=== PATIENT | female | born 1950 | race Caucasian/White ===

== ENCOUNTER 2018-05-09 20:54 | Emergency (ER) | payer MEDICARE, OTHER ==
[2018-05-09 21:38] VITALS: BP 140/76; PULSE 104; RESP 20
[2018-05-09] MEDS ORDERED: SODIUM CHLORIDE 0.9% 1,000 ML IV STA ×2 (22:25)
[2018-05-09] MEDS ORDERED: SODIUM CHLORIDE 0.9% 500 ML 500 ML IV STA (22:25)
[2018-05-09] MEDS ORDERED: ACETAMINOPHEN IV (For NPO) 1,000 MG in EMPTY BAG 1 BAG IVPB STA (22:25)
[2018-05-09] MEDS ORDERED: ONDANSETRON 4 MG/2 ML VIAL IVP STA (22:25)
[2018-05-09] MEDS ORDERED: KETOROLAC 30 MG/ML 1 ML VIAL IVP STA (22:25)
--- NOTE | 2018-05-09 22:29 | ED ---
Weakness HPI - General Chief complaint: Nausea/Vomiting/Diarrhea Stated complaint: Weakness, NVD Time Seen by Provider: 05/09/18 22:02 Source: EMS, RN notes reviewed, old records reviewed Mode of arrival: EMS Limitations: no limitations - History of Present Illness Initial comments: This is a 68-year-old female the ER for evaluation is patient resents today for evaluation of fever weakness bodyaches and not feeling well. Patient has positive current fever as well. No recent travel history no sick contacts. Patient has a nausea and vomiting all day. No diarrhea. No significant shortness of breath no chest pain no abdominal pain. No modifying factors for symptoms. Patient has been exposed patient, child with influenza MD Complaint: generalized weakness -: days(s) Location: generalized Severity: moderate Severity scale (1-10): 4 Quality: aching Consistency: constant Improves with: none Worsens with: none Context: recent illness Associated Symptoms: fever/chills, loss of appetite, nausea/vomiting - Related Data Home Medications Medication Instructions Recorded Confirmed Budesonide/Formoterol Fumarate 2 puff INHALATION BID 05/09/18 05/09/18 [Symbicort 160-4.5 Mcg Inhaler] Hydrochlorothiazide 50 mg PO DAILY 05/09/18 05/09/18 Hydroxychloroquine Sulfate 200 mg PO BID 05/09/18 05/09/18 [Plaquenil] Insulin Glargine,Hum.rec.anlog 35 unit SQ HS 05/09/18 05/09/18 [Basaglar Kwikpen U-100] Metoprolol Tartrate [Lopressor] 50 mg PO TID 05/09/18 05/09/18 Multivitamins, Thera [Multivitamin 1 tab PO DAILY 05/09/18 05/09/18 (formulary)] [place]-3 Fatty Acids/Fish Oil [Fish 1 cap PO DAILY 05/09/18 05/09/18 Oil 1,000 mg Softgel] Omeprazole 20 mg PO DAILY 05/09/18 05/09/18 Oxybutynin Chloride [Ditropan] 5 mg PO DAILY 05/09/18 05/09/18 Potassium Chloride [Klor-Con 20] 20 meq PO DAILY 05/09/18 05/09/18 Turmeric Root Extract [Turmeric] 500 mg PO DAILY 05/09/18 05/09/18 amLODIPine [Norvasc] 5 mg PO DAILY 05/09/18 05/09/18 glipiZIDE [Glucotrol] 10 mg PO BID 05/09/18 05/09/18 metFORMIN HCL 1,000 mg PO BID 05/09/18 05/09/18 Allergies Allergy/AdvReac Type Severity Reaction Status Date / Time No Known Allergies Allergy Verified 05/09/18 22:05 Review of Systems ROS Statement: Those systems with pertinent positive or pertinent negative responses have been documented in the HPI. ROS Other: All systems not noted in ROS Statement are negative. Past Medical History Past Medical History: Asthma, Diabetes Mellitus, Hypertension Additional Past Medical History / Comment(s): lupus, thrombocytopenia History of Any Multi-Drug Resistant Organisms: MRSA Date of last positivie culture/infection: 2014 MDRO Source:: blood Past Surgical History: Appendectomy, Hysterectomy, Tonsillectomy Past Psychological History: No Psychological Hx Reported Smoking Status: Never smoker Past Alcohol Use History: None Reported Past Drug Use History: None Reported General Exam Limitations: no limitations General appearance: alert, in no apparent distress Head exam: Present: atraumatic, normocephalic, normal inspection Eye exam: Present: normal appearance, PERRL, EOMI. Absent: scleral icterus, conjunctival injection, periorbital swelling ENT exam: Present: normal exam, mucous membranes dry Neck exam: Present: normal inspection. Absent: tenderness, meningismus, lymp hadenopathy Respiratory exam: Present: normal lung sounds bilaterally. Absent: respiratory distress, wheezes, rales, rhonchi, stridor Cardiovascular Exam: Present: normal rhythm, tachycardia, normal heart sounds. Absent: systolic murmur, diastolic murmur, rubs, gallop, clicks GI/Abdominal exam: Present: soft, normal bowel sounds. Absent: distended, tenderness, guarding, rebound, rigid Extremities exam: Present: normal inspection, full ROM, normal capillary refill. Absent: tenderness, pedal edema, joint swelling, calf tenderness Back exam: Present: normal inspection Neurological exam: Present: alert, oriented X3, CN II-XII intact Psychiatric exam: Present: normal affect, normal mood Skin exam: Present: warm, dry, intact, normal color. Absent: rash Course Vital Signs 05/09/18 21:28 Temperature 100.5 F H Pulse Rate 104 H Respiratory 20 Rate Blood Pressure 140/76 O2 Sat by Pulse 91 L Oximetry EKG Findings - EKG Comments: EKG Findings:: EKG shows sinus tachycardia rate of 102, WI 174, QRS 93,QTC 523 Medical Decision Making - Medical Decision Making 68 female the ER for evaluation of fever not feeling well nausea vomiting. Patient is to be discharged home, feeling better currently with fever control and IV hydration. - Lab Data Result diagrams: 05/09/18 21:41 05/09/18 21:41 Lab Results 05/09/18 05/09/18 05/09/18 Range/Units 21:41 21:41 21:41 WBC 3.8 (3.8-10.6) k/uL RBC 4.11 (3.80-5.40) m/uL Hgb 12.6 (11.4-16.0) gm/dL Hct 36.5 (34.0-46.0) % MCV 88.9 (80.0-100.0) fL MCH 30.8 (25.0-35.0) pg MCHC 34.6 (31.0-37.0) g/dL RDW 13.1 (11.5-15.5) % Plt Count 116 L (150-450) k/uL Neutrophils % 80 % Lymphocytes % 10 % Monocytes % 7 % Eosinophils % 1 % Basophils % 1 % Neutrophils # 3.0 (1.3-7.7) k/uL Lymphocytes # 0.4 L (1.0-4.8) k/uL Monocytes # 0.3 (0-1.0) k/uL Eosinophils # 0.1 (0-0.7) k/uL Basophils # 0.0 (0-0.2) k/uL Sodium 134 L (137-145) mmol/L Potassium 3.2 L (3.5-5.1) mmol/L Chloride 97 L (98-107) mmol/L Carbon Dioxide 26 (22-30) mmol/L Anion Gap 11 mmol/L BUN 12 (7-17) mg/dL Creatinine 0.56 (0.52-1.04) mg/dL Est GFR (CKD-EPI)AfAm >90 (>60 ml/min/1.73 sqM) Est GFR (CKD-EPI)NonAf >90 (>60 ml/min/1.73 sqM) Glucose 182 H (74-99) mg/dL Calcium 8.7 (8.4-10.2) mg/dL Phosphorus 3.9 (2.5-4.5) mg/dL Magnesium 1.2 L (1.6-2.3) mg/dL Total Bilirubin 1.0 (0.2-1.3) mg/dL AST 66 H (14-36) U/L ALT 71 H (9-52) U/L Alkaline Phosphatase 48 (38-126) U/L Total Protein 6.8 (6.3-8.2) g/dL Albumin 4.0 (3.5-5.0) g/dL Lipase 43 (23-300) U/L Influenza Type A RNA Detected H (Not Detectd) Influenza Type B (PCR) Not Detected (Not Detectd) - Radiology Data Radiology results: report reviewed (Chest x-rays negative for acute disease), image reviewed Disposition Clinical Impression: Dehydration, Fever, Influenza A Disposition: HOME SELF-CARE Condition: Good Instructions (If sedation given, give patient instructions): Influenza (ED) Is patient prescribed a controlled substance at d/c from ED?: No Referrals: Zakiya Germain DO [Primary Care Provider] - 1-2 days
[2018-05-09 22:39] LABS: Basophils % (A) 1 %; Eosinophils # (A) 0.1 k/uL (0-0.7); Eosinophils % (A) 1 %; HCT 36.5 % (34.0-46.0); HGB 12.6 gm/dL (11.4-16.0); Lymphocytes # (A) 0.4 k/uL (1.0-4.8); Lymphocytes % (A) 10 %; MCH 30.8 pg (25.0-35.0); MCHC 34.6 g/dL (31.0-37.0); MCV 88.9 fL (80.0-100.0); Mean Platelet Volume 6.4; Monocytes # (A) 0.3 k/uL (0-1.0); Monocytes % (A) 7 %; Neutrophils % (A) 80 %; Platelet Count 116 k/uL (150-450); RBC 4.11 m/uL (3.80-5.40); RDW 13.1 % (11.5-15.5); WBC 3.8 k/uL (3.8-10.6)
[2018-05-09 22:47] LABS: ALT 71 U/L (9-52); AST 66 U/L (14-36); Alkaline Phosphatase 48 U/L (38-126); Anion Gap 11 mmol/L; Blood Urea Nitrogen 12 mg/dL (7-17); Calcium 8.7 mg/dL (8.4-10.2); Carbon Dioxide 26 mmol/L (22-30); Chloride 97 mmol/L (98-107); Glucose 182 mg/dL (74-99); Lipase 43 U/L (23-300); Magnesium 1.2 mg/dL (1.6-2.3); Phosphorus 3.9 mg/dL (2.5-4.5); Potassium 3.2 mmol/L (3.5-5.1); Sodium 134 mmol/L (137-145); Total Protein 6.8 g/dL (6.3-8.2)
[2018-05-09] MEDS ORDERED: MAGNESIUM SULFATE-D5W PMX 1 GM in DEXTROSE/WATER 1 100ML.BAG IVPB SCH (23:45)
[2018-05-09] MEDS ORDERED: POTASSIUM BICARBONATE/CIT AC 20 MEQ TABLET.EFF PO ONE (23:53)
[2018-05-09] MEDS ORDERED: MAGNESIUM OXIDE 400 MG TAB PO STA (23:53)
[2018-05-09] MEDS ORDERED: DEXAMETHASONE SOD PHOSPHATE 10 MG/ML 1 ML VIAL IV STA (23:57)
[2018-05-09] MEDS ORDERED: OSELTAMIVIR 75 MG CAP PO STA (23:57)
[2018-05-10] LABS: Appearance,Urine Cloudy (Clear); Bilirubin,Urine Negative (Negative); Blood,Urine Negative (Negative); Color,Urine Yellow; Glucose,Urine (UA) Trace (Negative); Ketones,Urine 2+ (Negative); Leukocyte Esterase,Urine Negative (Negative); Mucus,Urine Occasional /hpf; Nitrite,Urine Negative (Negative); PH, Urine 5.5 (5.0-8.0); Protein,Urine 1+ (Negative); RBC,Urine <1 /hpf (0-5); Specific Gravity,Urine 1.016 (1.001-1.035); Squamous Epithelial Cell,Urine 1 /hpf (0-4); Urobilinogen,Urine <2.0 mg/dL (<2.0)
[2018-05-10 00:35] VITALS: TEMP 98.9
--- NOTE | 2018-05-10 07:19 | XR ---
EXAMINATION TYPE: XR chest 2V DATE OF EXAM: 05/09/2018 COMPARISON: NONE HISTORY: Shortness of breath and chest pain TECHNIQUE: Frontal and lateral views of the chest are obtained. FINDINGS: Platelike left midlung linear probable atelectasis is seen. Pulmonary vascular prominence is noted throughout. No sizable pleural effusion or pneumothorax. Cardiomediastinal silhouette is wit hin normal limits. IMPRESSION: Left midlung linear airspace disease favored to represent atelectasis and mild pulmonary vascular prominence. Correlate for fluid overload.
== END 2018-05-10 00:34 | disposition home or self-care (01) ==
LOC: EC 20:54
DX: E86.0 Dehydration (principal); J10.1 Influenza due to other identified influenza virus with other respiratory manifestations; R00.0 Tachycardia, unspecified; R53.1 Weakness; R63.0 Anorexia; J45.909 Unspecified asthma, uncomplicated; E11.9 Type 2 diabetes mellitus without complications; I10 Essential (primary) hypertension; Z79.4 Long term (current) use of insulin; Z79.51 Long term (current) use of inhaled steroids; Z79.899 Other long term (current) drug therapy; Z86.14 Personal history of Methicillin resistant Staphylococcus aureus infection; Z90.49 Acquired absence of other specified parts of digestive tract; Z90.89 Acquired absence of other organs
CPT/HCPCS: 36415; 93005; 80053; 83605; 83690; 83735; 84100; 85025; 87502; 71046; 99285; 96365; 96375 ×3; 96361; J2405; J1885; J0131; 81001

== ENCOUNTER → 2019-05-04 | Outpatient (CLI) | payer MEDICARE, OTHER ==
[2019-05-04 20:07] LABS: Hemoglobin A1C 7.3 % (4.0-6.0)
== END | disposition home or self-care (01) ==
LOC: LABWHC1 07:43
PROVIDERS: ATTEND Family Medicine
DX: E11.9 Type 2 diabetes mellitus without complications (principal)
CPT/HCPCS: 36415; 83036

== ENCOUNTER 2020-03-14 06:48 | Day surgery (SDC) | payer MEDICARE, OTHER ==
[2020-03-12 17:45] VITALS: BMI 40.4
[~2020-03-14 06:48] MED LIST: LACTATED RINGERS 1,000 ML IV SCH; LIDOCAINE 1% (10MG/ML) FOR IV START INTRADERMA PRN
[2020-03-14 07:30] VITALS: TEMP 97.3
[2020-03-14 07:33] LABS: Glucose,Whole Blood 132 mg/dL (75-99)
[2020-03-14] MEDS ORDERED: PROPOFOL 10 MG/ML 20 ML VIAL IV ONE (07:33)
[2020-03-14] MEDS ORDERED: LIDOCAINE 1% INJ 10MG/ML (20 ML MDV) ONE (07:33)
--- NOTE | 2020-03-14 08:11 | P.PCN ---
Date of Procedure: 03/14/20 Description of Procedure: BRIEF HISTORY: Patient is a 70-year-old female presenting for outpatient colonoscopy family history of colon cancer. Please last colonoscopy was 3 years ago with polypectomy at that time. She denies any change in bowel or blood per rectum. She reports a family history of colon cancer in her father, and nephew. PROCEDURE PERFORMED: Colonoscopy. PREOPERATIVE DIAGNOSIS: Family history of colon cancer, patient reports last colonoscopy 3 years ago with polypectomy. ESTIMATED BLOOD LOSS: Minimal. IV sedation per Anesthesia. PROCEDURE: After informed consent was obtained, the patient, was brought into the endoscopy unit. IV sedation was administered by Anesthesia under continuous monitoring. Digital rectal examination was normal. Initially the Olympus CF-190 flexible video colonoscope was then inserted in the rectum, gradually advanced into the cecum without any difficulty. Careful examination was performed as the scope was gradually being withdrawn. Ileocecal valve and the appendiceal orifice were visualized and appeared normal. Prep was excellent. Mucosa of the cecum, ascending colon, transverse colon, descending colon, sigmoid colon, and rectum appeared normal, with multiple small and large mouth diverticula noted throughout the colon. Retroflexion was performed in the rectum and no lesions were seen, with moderate-sized internal hemorrhoids noted. The patient tolerated the procedure well. IMPRESSION: Moderate diverticulosis. Internal hemorrhoids. RECOMMENDATIONS: Findings of this examination were discussed with the patient. Okay to resume diet. Okay to resume medications. Recommend fiber supplementation and fransico cending diverticulosis. Recommend repeat colonoscopy in 5 years for family history of colon cancer or sooner if any signs or symptoms warrant further evaluation develop.
[2020-03-14 08:18] VITALS: RESP 16
[2020-03-14 08:32] VITALS: BP 152/78; PULSE 68
[2020-03-14 08:37] LABS: Glucose,Whole Blood 129 mg/dL (75-99)
== END 2020-03-14 10:31 | disposition home or self-care (01) ==
LOC: ORWHC2ENDO 06:48
PROVIDERS: ATTEND Internal Medicine
DX: Z09 Encounter for follow-up examination after completed treatment for conditions other than malignant neoplasm (principal); K57.30 Diverticulosis of large intestine without perforation or abscess without bleeding; K64.8 Other hemorrhoids; Z86.010 Personal history of colon polyps; Z80.0 Family history of malignant neoplasm of digestive organs; I10 Essential (primary) hypertension; J45.909 Unspecified asthma, uncomplicated; E78.5 Hyperlipidemia, unspecified; G47.33 Obstructive sleep apnea (adult) (pediatric); E11.9 Type 2 diabetes mellitus without complications; M32.9 Systemic lupus erythematosus, unspecified; D69.6 Thrombocytopenia, unspecified; K21.9 Gastro-esophageal reflux disease without esophagitis; Z79.51 Long term (current) use of inhaled steroids; Z79.84 Long term (current) use of oral hypoglycemic drugs; Z79.899 Other long term (current) drug therapy; Z87.891 Personal history of nicotine dependence; Z90.710 Acquired absence of both cervix and uterus; Z90.89 Acquired absence of other organs; Z98.890 Other specified postprocedural states
CPT/HCPCS: 45378; J2001; J2704

== ENCOUNTER → 2020-08-26 | Outpatient (CLI) | payer MEDICARE, OTHER | END | disposition home or self-care (01) | LOC: LABPAT 11:13 | PROVIDERS: ATTEND Orthopaedic Surgery | DX: Z01.812 Encounter for preprocedural laboratory examination (principal) | CPT/HCPCS: 87070 ==

== ENCOUNTER 2020-09-02 10:36 | Day surgery (SDC) | payer MEDICARE, OTHER ==
[2020-08-29 12:01] VITALS: BMI 42.3
--- NOTE | 2020-09-01 10:40 | HP ---
HISTORY AND PHYSICAL DATE OF SURGERY: 09/02/2020 HISTORY OF PRESENT ILLNESS: Joyce Winters is a 70-year-old patient seen with symptomatic left knee osteoarthritis. We discussed options for treatment. She elected to proceed with left total knee arthroplasty. Consent regarding the procedure was obtained. Medical clearance was provided by Dr. Irvin Carlisle. PAST MEDICAL HISTORY: Hypertension, hyperlipidemia, jss-yuedntf-zavtrmldl diabetes. PAST SURGICAL HISTORY: Appendectomy, tonsillectomy, hysterectomy. DAILY MEDICATIONS: Amlodipine, atorvastatin, Januvia, lisinopril, metformin, metoprolol, omeprazole. ALLERGIES: None. SOCIAL HISTORY: She denies tobacco use. PHYSICAL EVALUATION OF THE LEFT KNEE: Range of motion is -3 to 4/115. Mild effusion. Tenderness medial joint line. Crepitus medial patellofemoral compartment on range of motion. Pain with patellofemoral compression. Ligaments stable. Hip rotation without pain. Distal neurovascular exam is intact. RADIOGRAPHS: Left knee radiographs reveal severe osteoarthritic changes. IMPRESSION: 1. Left knee osteoarthritis. 2. Hypertension. 3. Hyperlipidemia. 4. Esr-dbwglvg-bsiemhpjn diabetes. PLAN: Left total knee arthroplasty. MMODL / IJN: [id number] /
[~2020-09-02 10:36] MED LIST changes: +ACETAMINOPHEN TAB 500 MG TAB PO PRN; +DEXAMETHASONE SOD PHOSPHATE 4 MG/ML 1 ML VIAL IV ONE; +HYDROmorphone 0.5 MG/0.5 ML SYRINGE IVP PRN; -LACTATED RINGERS 1,000 ML IV SCH; -LIDOCAINE 1% (10MG/ML) FOR IV START INTRADERMA PRN; +MELOXICAM 7.5 MG TAB PO PRN; +ONDANSETRON 4 MG/2 ML VIAL IVP ONE; +ROPIVACAINE/EPI/CLONIDINE/KET 50 ML SYRINGE MISCELLANE PRN; +TRANEXAMIC ACID 1,000 MG in SODIUM CHLORIDE 0.9% 100 ML IVPB PRN
[2020-09-02] MEDS ORDERED: ONDANSETRON 4 MG/2 ML VIAL ONE (11:38)
[2020-09-02 11:39] LABS: Glucose,Whole Blood 178 mg/dL (75-99)
[2020-09-02] MEDS: LACTATED RINGERS 1,000 ML IV SCH ×3 (11:43→16:43)
[2020-09-02] MEDS ORDERED: fentaNYL (PF) 50 MCG/ML 2 ML AMP IVP ONE (11:52)
[2020-09-02] MEDS ORDERED: MIDAZOLAM 2 MG/2 ML VIAL IVP ONE (11:52)
[2020-09-02] MEDS ORDERED: HYDROmorphone (PF) 1 MG/ML ONE (12:50)
[2020-09-02] MEDS ORDERED: TRANEXAMIC ACID 1,000 MG/10 ML VIAL ONE (12:50)
[2020-09-02] MEDS ORDERED: MIDAZOLAM 2 MG/2 ML VIAL ONE (12:50)
[2020-09-02] MEDS ORDERED: fentaNYL (PF) 50 MCG/ML 2 ML AMP ONE (12:50)
[2020-09-02] MEDS ORDERED: PROPOFOL 10 MG/ML 20 ML VIAL IV ONE (12:50)
[2020-09-02] MEDS ORDERED: SODIUM CHLORIDE 0.9% 100 ML BAG ONE (12:50)
[2020-09-02] MEDS ORDERED: ROPIVACAINE 5 MG/ML 30 ML VIAL ONE (12:50)
[2020-09-02] MEDS ORDERED: HYDROmorphone 0.5 MG/0.5 ML SYRINGE IVP PRN ×2 (14:36)
[2020-09-02] MEDS ORDERED: HYDROcodone/APAP 7.5-325MG 1 EACH TAB PO PRN (14:36)
[2020-09-02] MEDS ORDERED: HYDROcodone/APAP 5-325MG 1 EACH TAB PO PRN (14:36)
[2020-09-02] MEDS ORDERED: ONDANSETRON 4 MG/2 ML VIAL IVP PRN (14:36)
[2020-09-02] MEDS ORDERED: HYDROmorphone 0.2 MG/1 ML SYRINGE IVP PRN (14:36)
[2020-09-02] MEDS ORDERED: traMADol 50 MG TAB PO PRN (14:36)
[2020-09-02] MEDS ORDERED: NALOXONE 0.4 MG/ML 1 ML VIAL IV PRN (14:36)
--- NOTE | 2020-09-02 14:36 | P.OP ---
Date of Procedure: 09/02/20 Preoperative Diagnosis: Left knee osteoarthritis Postoperative Diagnosis: Left knee osteoarthritis Procedure(s) Performed: Left total knee arthroplasty Implants: 1. Depuy attune knee size 6 left cruciate retaining cemented femur 2. Depuy attune size 6 fixed bearing cemented tibial baseplate 3. Depuy attune size 6 fixed bearing cruciate retaining 5 mm polyethylene tibial insert 4. Depuy attune 35 mm all polyethylene cemented patella Anesthesia: regional (Adductor canal catheter, I pack block), spinal Surgeon: Avi Degroot Gathering Machine Setter #1: Nilesh Montalvo Estimated Blood Loss (ml): 50 Pathology: other (Bone) Condition: stable Disposition: PACU Indications for Procedure: 70-year-old patient seen with symptomatic left knee osteoarthritis. After having treatment options discussed, she elected to proceed with total knee arthroplasty. Operative Findings: See description of procedure Description of Procedure: Patient was taken to the operative suite after having an adductor canal catheter placed by the department of anesthesia. Patient underwent a spinal anesthetic by the department of anesthesia. Patient was given preoperative IV intake antibiotics and TXA. A well-padded tourniquet was placed about the left lower extremity. The lower extremity was then prepped and draped in the normal sterile orthopedic fashion. The extremity was elevated, a tourniquet was insufflated to 300. A standard anterior incision was made sharply through skin. Dissection was taken down through the subcutaneous soft tissues down to the extensor mechanism. A medial arthrotomy was performed, patella was everted and knee was flexed. There was advanced osteoarthritis noted. I introduced my distal intramedullary femoral drill. I then introduced the distal femoral cu tting jig. Clifton ELIAS secured the cutting jig with 2 pins. I held retractors in position while Clifton ELIAS performed the distal femoral resection through the guide area we now removed her distal femoral cutting guide. We now placed our 4-in-1 femoral cutting block and positioned and it was secured with 2 pins by Clifton ELIAS while I held the block in position. The distal femoral finishing was now completed. A proximal tibial cutting guide was positioned. I held the guide in the appropriate position with both hands well Clifton ELIAS inserted stabilizing pins into the guide. Proximal tibial cut was made. We now placed a trial femoral component into position, along with an appropriate size tibial tray and insert. We now took the knee through range of motion and had full extension good flexion and good overall soft tissue balance noted. The patella was everted and stabilized with 2 towel clips held by Clifton ELIAS while I performed a flush with patellar quad tendon utilizing a fresh sawblade. We templated the patella, appropriate drill holes were made. An appropriate trial patella was positioned, knee was taken through full range of motion with the patella tracking very nicely. The trial patella was removed. Drill holes were made through the femoral component. All trial components were removed after marking off the appropriate rotation of the tibia. Retractors were now positioned along the proximal tibia. An appropriate keel punch was made with the appropriate size tibial guide by myself on Clifton ELIAS assisted by holding retractors. At this point appropriate size implants were chosen and opened. The joint was irrigated copiously with pulse lavage mechanical irrigation. The posterior capsule was infiltrated with local analgesic. The wound was irrigated with pulse lavage mechanical irrigation. We mixed antibiotic methylmethacrylate. We placed the knee into flexion. We placed multiple retractors assisted by Clifton ELIAS to expose the proximal tibia. Once the methyl methacrylate was ready, the tibial component was cemented into place removing any excess methylmethacrylate form by both myself and Clifton ELIAS. The femoral component was cemented into place removing the removing any excess methylmethacrylate performed by both myself and Clifton ELIAS. We then inserted the appropriate size polyethylene tibial insert. We made sure that it was locked into position. We took the knee into full extension, and then back in a flexion making sure we had removed any excess methylmethacrylate. The patellar component was then cemented down and secured with clamp. Excess methylmethacrylate removed. We kept the knee in full extension, patellar clamp in position until methylmethacrylate had hardened. Once it had hardened the patellar clamp was removed. The knee was taken through full range of motion. The patella tracked nicely. There was good soft tissue balancing. The tourniquet was now released. Additional hemostasis was achieved via electrocautery. A second gram of TXA was given. The wound again was irrigated with pulse lavage mechanical irrigation. The superficial soft tissues were infiltrated local analgesic. The extensor mechanism was repaired with Ethibond. We checked the repair with range of motion and it was stable. The subcutaneous soft tissues were repaired with Vicryl in layers. The skin was approximated with pernio/Dermabond. Sterile dressings were applied followed by loose web roll and Misael bandage. The patient was transferred to a bed, and taken to recovery in stable and satisfactory condition. Clifton ELIAS assisted with this complex procedure.
--- NOTE | 2020-09-02 14:49 | P.ANPRN ---
Procedure Note - Anesthesia - Nerve Block Performed Left Adductor Canal Infusion Time Out Performed: Yes (1150) Date of Procedure: 09/02/20 Procedure Start Time: 11:52 Procedure Stop Time: 11:57 Location of Patient: PreOp Indication: Acute Post-Operative Pain, Requested by Surgeon Specifically requested for management of pain by DrPan: Avi Degroot Sedation Type: Sedate with meaningful contact maintained Preparation: Sterile Prep Position: Supine Catheter Depth at Skin (cm): 8 Catheter: Indwelling Needle Types: Pajunk Needle Gauge: 21 Ultrasound used to visualize needle placement: Yes Ultrasound used to observe medication spread: Yes Injectate: 0.5% Ropivacaine (see comment for volume) (15cc) Blood Aspirated: No Pain Paresthesia on Injection Noted: No Resistance on Injection: Normal Image Stored and Saved: Yes Events: Uneventful and Well Tolerated Left iPack Single Time Out Performed: Yes (115) Date of Procedure: 09/02/20 Procedure Start Time: 11:58 Procedure Stop Time: 12:01 Location of Patient: PreOp Indication: Acute Post-Operative Pain, Requested by Surgeon Specifically requested for management of pain by DrPan: Avi Degroot Sedation Type: Sedate with meaningful contact maintained Preparation: Sterile Prep Position: Supine Catheter: None Needle Types: Pajunk Needle Gauge: 21 Ultrasound used to visualize needle placement: Yes Ultrasound used to observe medication spread: Yes Injectate: 0.5% Ropivacaine (see comment for volume) (15cc) Blood Aspirated: No Pain Paresthesia on Injection Noted: No Resistance on Injection: Normal Image Stored and Saved: Yes Events: Uneventful and Well Tolerated
[2020-09-02] MEDS ORDERED: ROPIVACAINE 0.2%-NS ON-Q PUMP 2 MG/ML EACH MISCELLANE ONE (15:15)
--- NOTE | 2020-09-02 15:16 | XR ---
EXAMINATION TYPE: XR knee limited LT DATE OF EXAM: 09/02/2020 CLINICAL HISTORY: Postop. Left knee arthroplasty. TECHNIQUE: Portable AP and crosstable lateral views of the left knee are obtained immediately postop eratively. COMPARISON: None FINDINGS: Metallic hardware from total left knee arthroplasty is seen and appears satisfactory in al ignment and position. There is evidence of recent surgery with diffuse soft tissue gas. There is no acute osseous abnormality. There is no unexpected radiopaque foreign body. IMPRESSION: METALLIC HARDWARE FROM TOTAL LEFT KNEE ARTHROPLASTY IS SATISFACTORY IN ALIGNMENT.
[2020-09-02 16:39] LABS: Glucose,Whole Blood 250 mg/dL (75-99)
[2020-09-02 20:36] LABS: Glucose,Whole Blood 393 mg/dL (75-99)
[2020-09-02] MEDS ORDERED: glipiZIDE 10 MG TAB PO SCH (21:00)
[2020-09-02] MEDS ORDERED: SENNOSIDES-DOCUSATE SODIUM 1 EACH TAB PO SCH (21:00)
[2020-09-02] MEDS: INSULIN ASPART (NovoLOG) 100 UNIT/ML VIAL SQ SCH (21:06)
[2020-09-02] MEDS: metFORMIN 500 MG TAB PO SCH (21:23)
[2020-09-02] MEDS ORDERED: OXYBUTYNIN CHLORIDE 5 MG TAB PO SCH (21:30)
[2020-09-02] MEDS ORDERED: ATORVASTATIN 20 MG TAB PO SCH (21:30)
[2020-09-02] MEDS: METOPROLOL TARTRATE 50 MG TAB PO SCH (21:44)
[2020-09-02] MEDS: SYMBICORT 160-4.5 MCG INHALER INHALATION SCH (22:34)
[2020-09-03] MEDS: LACTATED RINGERS 1,000 ML IV SCH (00:10)
--- NOTE | 2020-09-03 03:52 | P.CONS ---
History of Present Illness - Reason for Consult Consult date: 09/03/20 - History of Present Illness The patient is a 70-year-old female with a PMH of type II DM, hypertension, hyperlipidemia, and knee osteoarthritis who was admitted to the hospital for an elective left total knee replacement. Patient underwent the procedure earlier today uneventfully and was seen postoperatively on the surgical unit. She reported excellent control of her pain, currently at a 1 out of 10. She reports having gotten out of the bed multiple times and has used the restroom to urinate. She also reports passing flatus but has not had a bowel movement as of yet. She reports compliance with her medication at home. She denied chest discomfort, shortness of breath, fever, chills, cough. Denied abdominal pain, nausea, vomiting. Denied headaches, weakness, numbness, tingling. Review of systems: Pertinent positives and negatives as discussed in HPI, a complete review of systems was performed and all other systems are negative. Physical examination: General: non toxic, no distress, appears at stated age, normal weight Derm: no unusual rashes/lesions no unusual ecchymoses, warm, dry Head: atraumatic, normocephalic, symmetric Eyes: EOMI, no lid lag, anicteric sclera, pupils equal round reactive to light ENT: Nose and ears atraumatic, no thrush, no pharyngeal erythema Neck: No thyromegaly, no cervical lymphadenopathy, trachea midline, supple Mouth: no lip lesion, mucus membranes moist Cardiovascular: S1S2 reg, no murmur, positive posterior tibial pulse bilateral, no edema, capillary refill less than 2 seconds Lungs: CTA bilateral, no rhonchi, no rales , no accessory muscle use Abdominal: soft, nontender to palpation, no guarding, no appreciable organomegaly, normal bowel sounds Ext: no gross muscle atrophy, muscle strength 5 out of 5 in all extremities grossly except left lower extremity due to pain, no contractures, left knee Misael bandage in place Neuro: CN II-XI grossly intact, light touch intact all 4 extremities, finger to nose within normal limits, Psych: Alert, oriented, appropriate affect Assessment/plan Status post left total knee replacement -Defer management including pain control and DVT prophylaxis to the surgery service Chronic conditions: Type II DM, hypertension, hyperkalemia -Continue with home medications -Lispro insulin sliding scale with blood glucose monitoring Past Medical History Past Medical History: Asthma, Blood Disorder, Diabetes Mellitus, GERD/Reflux, Hyperlipidemia, Hypertension, Osteoarthritis (OA), Sleep Apnea/CPAP/BIPAP Additional Past Medical History / Comment(s): Lupus, Thrombocytopenia, no CPAP use, hx of ulcer in 2014. History of Any Multi-Drug Resistant Organisms: MRSA Year Discovered:: 2014 MDRO Source:: blood Past Surgical History: Appendectomy, Hysterectomy, Tonsillectomy Additional Past Surgical History / Comment(s): Varicose vein ablation bilaterally, fatty "lump" excised from right shoulder blade, bilateral cataracts removed with lens implants. Past Anesthesia/Blood Transfusion Reactions: No Reported Reaction Past Psychological History: No Psychological Hx Reported Smoking Status: Former smoker Past Alcohol Use History: Occasional Additional Past Alcohol Use History / Comment(s): Smoked for 20 years, 1/2 ppd, quit in 1990. Past Drug Use History: None Reported Additional Drug Use History / Comment(s): Has used CBD/hemp oil but not currently using. - Past Family History Father Brother(s) Family Medical History: Cancer Additional Family Medical History / Comment(s): Colon cancer. Sister(s) Family Medical History: Cancer Additional Family Medical History / Comment(s): Lung cancer. Medications and Allergies Home Medications Medication Instructions Recorded Confirmed Type Budesonide/Formoterol Fumarate 2 puff INHALATION BID 05/09/18 08/29/20 History [Symbicort 160-4.5 Mcg Inhaler] Metoprolol Tartrate [Lopressor] 100 mg PO BID 05/09/18 08/29/20 History Multivitamins, Thera [Multivitamin 1 tab PO DAILY 05/09/18 08/29/20 History (formulary)] Omeprazole 20 mg PO QAM 05/09/18 08/29/20 History Oxybutynin Chloride [Ditropan] 5 mg PO HS 05/09/18 08/29/20 History amLODIPine [Norvasc] 5 mg PO QAM 05/09/18 08/29/20 History glipiZIDE [Glucotrol] 20 mg PO HS 05/09/18 08/29/20 History metFORMIN HCL 1,000 mg PO BID 05/09/18 08/29/20 History Atorvastatin [Lipitor] 20 mg PO HS 03/12/20 08/29/20 History Cinnamon Bark [Cinnamon] 1,000 mg PO BID 03/12/20 08/29/20 History Lisinopril-Hctz 20-12.5 mg 1 tab PO QAM 03/12/20 08/29/20 History [Zestoretic 20-12.5] [place]-3 Fatty Acids/Fish Oil [Fish 1 each PO DAILY 03/12/20 08/29/20 History Oil 1,000 mg Softgel] sitaGLIPtin PHOSPHATE [Januvia] 100 mg PO DAILY 03/12/20 08/29/20 History Pioglitazone [Actos] 15 mg PO QAM 08/29/20 08/29/20 History Allergies Allergy/AdvReac Type Severity Reaction Status Date / Time No Known Allergies Allergy Verified 08/29/20 11:33 Physical Exam Vitals: Vital Signs Temp Pulse Resp BP Pulse Ox 09/02/20 20:00 98.2 F 88 17 175/72 96 09/02/20 17:45 91 170/77 92 L 09/02/20 17:30 85 167/85 94 L 09/02/20 17:15 87 92 L 09/02/20 17:00 62 169/76 93 L 09/02/20 16:45 62 162/70 93 L 09/02/20 16:30 66 161/68 93 L 09/02/20 16:15 68 163/81 09/02/20 16:00 98.1 F 75 17 175/85 96 09/02/20 15:45 67 16 156/72 100 09/02/20 15:15 58 L 16 153/71 100 09/02/20 15:00 63 16 144/75 100 09/02/20 14:55 97.9 F 68 16 157/67 96 09/02/20 12:08 68 16 157/74 97 09/02/20 11:16 96.2 F L 76 16 145/76 100 Intake and Output 09/02/20 09/02/20 09/03/20 14:59 22:59 06:59 Intake Total 850 Output Total 50 Balance 800 Intake: IV 850 Output: Estimated Blood Loss 50 Other: # Voids 1 Weight 109.2 kg 109.2 kg Results Labs: Abnormal Lab Results - Last 24 Hours (Table) 09/02/20 09/02/20 09/02/20 Range/Units 11:28 16:37 20:35 POC Glucose (mg/dL) 178 H 250 H 393 H (75-99) mg/dL
[2020-09-03 06:56] LABS: Glucose,Whole Blood 188 mg/dL (75-99)
--- NOTE | 2020-09-03 07:05 | P.PN ---
Progress Note - Text Progress Note Date: 09/03/20 Postoperative day # 1 status post total knee arthroplasty, and adductor canal catheter placed for postoperative analgesia, currently at ropivacaine 0.2% 8 mL per hour and continuous infusion, visual analogue scale is 3/10, patient using oral pain medication for breakthrough pain. Assessment and plan= Acute postoperative pain, adductor canal catheter for pain control, pain is well controlled we'll continue the same management.
[2020-09-03] MEDS ORDERED: INSULIN ASPART (NovoLOG) 100 UNIT/ML VIAL SQ SCH (07:30)
[2020-09-03] MEDS ORDERED: PANTOPRAZOLE 40 MG TABLET PO SCH (07:30)
[2020-09-03] MEDS: INSULIN ASPART (NovoLOG) 100 UNIT/ML VIAL SQ SCH (07:37)
[2020-09-03] MEDS: SYMBICORT 160-4.5 MCG INHALER INHALATION SCH (08:24)
[2020-09-03] MEDS ORDERED: ENOXAPARIN 30 MG/0.3 ML SYRINGE SQ SCH (09:00)
[2020-09-03] MEDS ORDERED: MELOXICAM 7.5 MG TAB PO SCH (09:00)
[2020-09-03] MEDS ORDERED: LINAGLIPTIN 5 MG TABLET PO SCH (09:00)
[2020-09-03] MEDS ORDERED: LISINOPRIL-HCTZ 20-12.5 MG 1 EACH TAB PO SCH (09:00)
[2020-09-03] MEDS ORDERED: MULTIVITAMINS, THERA 1 EACH TAB PO SCH (09:00)
[2020-09-03] MEDS ORDERED: PIOGLITAZONE 15 MG TAB PO SCH (09:00)
[2020-09-03 09:08] LABS: Basophils # (A) 0.02 X 10*3/uL (0.00-0.10); Basophils % (A) 0.2 %; Eosinophils # (A) 0.01 X 10*3/uL (0.04-0.35); Eosinophils % (A) 0.1 %; HCT 31.5 % (37.2-46.3); Lymphocytes % (A) 18.2 %; MCH 30.9 pg (27.0-32.0); MCHC 34.9 g/dL (32.0-37.0); MCV 88.5 fL (80.0-97.0); Mean Platelet Volume 9.8 fL (9.5-12.2); Monocytes # (A) 0.67 X 10*3/uL (0.20-1.00); Monocytes % (A) 7.6 %; Neutrophils # (A) 6.44 X 10*3/uL (1.80-7.70); Neutrophils % (A) 73.4 %; Platelet Count 158 X 10*3/uL (140-440); RBC 3.56 X 10*6/uL (4.10-5.20); RDW 12.3 % (11.5-14.5); WBC 8.78 X 10*3/uL (4.50-10.00)
--- NOTE | 2020-09-03 10:11 | P.DS ---
Providers Date of admission: 09/01/2020 Expected date of discharge: 09/02/20 Attending physician: Avi Degroot Consults: 09/02/20 14:36 Consult Physician Routine Consulting Provider: Salazar Downs Consult Reason/Comments: Medical management Do you want consulting provider notified?: Yes 09/03/20 01:02 Consult Physician Routine Consulting Provider: Genesis Gould Consult Reason/Comments: Medical Management Do you want consulting provider notified?: Already Contacted Primary care physician: Irvin Carlisle Hospital Course: Date of admission: 09/01/2020 Date of discharge: 09/02/2020 Admission diagnosis: Left knee osteoarthritis Discharge diagnosis: Same Attending physician: Dr. Degroot Surgical procedures: Left total knee arthroplasty Brief history: Patient is a 70-year-old female with a history of progressive primary left knee osteoarthritis. At this point patient has failed conservative treatment measures and has opted to proceed with a elective left total knee arthroplasty. Hospital course: Details of patient's surgery can be found in operative report. Patient tolerated the procedure well and was subsequently transported to orthopedic floor. Patient's orthopedic and medical care was provided daily. Patient had daily laboratory tests performed for evaluation of overall blood counts. Patient had daily physical therapy to include strengthening range of motion as well as education with walker ambulation. Patient was treated with Lovenox for their postoperative DVT prophylaxis during their inpatient stay. Patient was noted to have a relatively uneventful postoperative course. Patient reported satisfactory pain control with oral pain medications by postoperative day 1. Patient showed satisfactory progress with physical therapy. Patient moved steadily through the program and had no difficulty meeting the goals by postoperative day 1. Given patient's otherwise satisfactory course and having met physical therapy goals, plan is to discharge patient home on postoperative day 1. Discharge condition/disposition: Patient will be discharged home in stable condition. Discharge medications: Instructions are given on resumption of patient's normal daily medications per primary care recommendation, in addition patient will be prescribed [place] 5 mg/325 mg; Colace; aspirin 81 mg twice a day 30 days. Discharge instructions: 1. Wound care and infection precautions, keep incision dry and covered while showering, no lotions, creams, moisturizers. No soaking, tubs, pools, hottubs. Do not scrub over the incision. 2. Weight-bear [as tolerated] with walker / cane until follow-up. 3. Ice and elevate when necessary. Do not exceed 20 minutes per hour with ice pack. 4. Utilize compression sleeve until seen at first follow up appointment. 5. Visiting nursing care. 6. Home physical therapy including home CPM. 7. Pain meds and anticoagulants per prescription. 8. Pain medication has potential to cause constipation. Increase oral fluid and fiber intake. Contact primary care provider if you have not had a bowel movement within 48 hours after discharge 9. No anti-inflammatory medication until discussed at first post operative visit, this including Motrin, Aleve, Mobic, Diclofenac. 10. Follow up in office at 2 weeks postop with Clifton Montalvo PA-C / Jarad Lawrence PA-C 11. Follow up with your primary care doctor 7-10 days after discharge. 12. Contact [facility] with any questions, . Keep silver foam dressing on for 7-10 days. Silver foam dressing may be removed after 7-10 days. While showering with silver dressing, place Saran wrap over area Assessment: Left knee osteoarthritis Procedures: Left total knee arthroplasty Patient Condition at Discharge: Good Plan - Discharge Summary Discharge Rx Participant: Yes New Discharge Prescriptions: New Docusate [Colace] 100 mg PO DAILY #30 capsule HYDROcodone/APAP 5-325MG [[place] 5-325] 1 tab PO Q6HR PRN #30 tab PRN Reason: Pain Aspirin [Adult Low Dose Aspirin EC] 81 mg PO BID #60 tablet. No Action Oxybutynin Chloride [Ditropan] 5 mg PO HS Multivitamins, Thera [Multivitamin (formulary)] 1 tab PO DAILY Omeprazole 20 mg PO QAM Budesonide/Formoterol Fumarate [Symbicort 160-4.5 Mcg Inhaler] 2 puff INHALATION BID metFORMIN HCL 1,000 mg PO BID glipiZIDE [Glucotrol] 20 mg PO HS Metoprolol Tartrate [Lopressor] 100 mg PO BID amLODIPine [Norvasc] 5 mg PO QAM Atorvastatin [Lipitor] 20 mg PO HS Cinnamon Bark [Cinnamon] 1,000 mg PO BID Lisinopril-Hctz 20-12.5 mg [Zestoretic 20-12.5] 1 tab PO QAM [place]-3 Fatty Acids/Fish Oil [Fish Oil 1,000 mg Softgel] 1 each PO DAILY sitaGLIPtin PHOSPHATE [Januvia] 100 mg PO DAILY Pioglitazone [Actos] 15 mg PO QAM Discharge Medication List Budesonide/Formoterol Fumarate [Symbicort 160-4.5 Mcg Inhaler] 2 puff INHALATION BID 05/09/18 [History] Metoprolol Tartrate [Lopressor] 100 mg PO BID 05/09/18 [History] Multivitamins, Thera [Multivitamin (formulary)] 1 tab PO DAILY 05/09/18 [History] Omeprazole 20 mg PO QAM 05/09/18 [History] Oxybutynin Chloride [Ditropan] 5 mg PO HS 05/09/18 [History] amLODIPine [Norvasc] 5 mg PO QAM 05/09/18 [History] glipiZIDE [Glucotrol] 20 mg PO HS 05/09/18 [History] metFORMIN HCL 1,000 mg PO BID 05/09/18 [History] Atorvastatin [Lipitor] 20 mg PO HS 03/12/20 [History] Cinnamon Bark [Cinnamon] 1,000 mg PO BID 03/12/20 [History] Lisinopril-Hctz 20-12.5 mg [Zestoretic 20-12.5] 1 tab PO QAM 03/12/20 [History] [place]-3 Fatty Acids/Fish Oil [Fish Oil 1,000 mg Softgel] 1 each PO DAILY 03/12/20 [History] sitaGLIPtin PHOSPHATE [Januvia] 100 mg PO DAILY 03/12/20 [History] Pioglitazone [Actos] 15 mg PO QAM 08/29/20 [History] Aspirin [Adult Low Dose Aspirin EC] 81 mg PO BID #60 tablet.dr 09/03/20 [Rx] Docusate [Colace] 100 mg PO DAILY #30 capsule 09/03/20 [Rx] HYDROcodone/APAP 5-325MG [[place] 5-325] 1 tab PO Q6HR PRN #30 tab 09/03/20 [Rx] Follow up Appointment(s)/Referral(s): Irvin Carlisle MD [Primary Care Provider] - 09/05/20 11:45 am Nilesh Montalvo PAC [PHYSICIAN [employer]] - 09/20/20 8:00 am Activity/Diet/Wound Care/Special Instructions: Orthopedic Discharge Instructions: 1. Wound care and infection precautions, [keep incision dry and covered while showering], no lotions, creams, moisturizers. No soaking, pools, hot tubs. Do not scrub over incision. 2. Weight-bear [as tolerated] with walker / cane until follow-up. 3. Ice and elevate when necessary. Do not exceed 20 minutes per hour with ice pack. 4. Utilize compression sleeve until seen at first follow up appointment. 5. Pain meds and anticoagulants per prescription. 6. Pain medication has potential to cause constipation. Increase oral fluid and fiber intake. Contact primary care provider if you have not had a bowel movement within 48 hours after discharge. 7. No anti-inflammatory medication until discussed at first post operative visit, this including Motrin, Aleve, Mobic, Diclofenac. 8. Follow up in office at 2 weeks postop with Clifton Montalvo PA-C / Jarad Lawrence PA-C 9. Follow up with your primary care doctor 7-10 days after discharge. 10. Contact [facility] with any questions, . Discharge Disposition: HOME WITH HOME HEALTH SERVICES
--- NOTE | 2020-09-03 10:16 | P.PN ---
Subjective Progress Note Date: 09/03/20 Principal diagnosis: Left knee osteoarthritis Patient is seen at bedside this morning. Patient was sitting up in chair. Patient says physical therapy went well this morning. She says she went up-and-down a couple of stairs and out into the hallway. Patient says she is in minimal pain. Patient says she has been using incentive spirometer throughout the morning. Patient says she has not had any bowel movements yet. Patient denies chest pain, fever, shortness of breath, nausea, vomiting, change in vision, loss of bowel/bladder control. Objective - Vital Signs Vital signs: Vital Signs Temp 98.3 F 09/03/20 08:11 Pulse 83 09/03/20 08:11 Resp 17 09/03/20 08:11 BP 125/62 09/03/20 08:11 Pulse Ox 95 09/03/20 08:11 Intake & Output 09/02/20 09/03/20 09/03/20 18:59 06:59 18:59 Intake Total 850 Output Total 50 Balance 800 Weight 109.2 kg Intake: IV 850 Output: Estimated Blood Loss 50 Other: Voiding Method Toilet Toilet # Voids 1 4 - Exam Left knee: Incision is clean, dry, and intact. The silver foam tape is in good condition. There is minimal soft tissue swelling and ecchymosis surrounding the medial and lateral aspects of the incision. Calf is soft, no tenderness with palpation. Plantar flexion, dorsiflexion, EHL, FHL are intact. Sensory exam to light touch throughout the extremity is intact, dorsal pedis pulses 2+. - Labs CBC & Chem 7: 09/03/20 05:42 Labs: Abnormal Lab Results - Last 24 Hours (Table) 09/02/20 09/02/20 09/02/20 Range/Units 11:28 16:37 20:35 RBC (4.10-5.20) X 10*6/uL Hgb (12.0-15.0) g/dL Hct (37.2-46.3) % Eosinophils # (0.04-0.35) X 10*3/uL POC Glucose (mg/dL) 178 H 250 H 393 H (75-99) mg/dL 09/03/20 09/03/20 Range/Units 05:42 06:54 RBC 3.56 L (4.10-5.20) X 10*6/uL Hgb 11.0 L (12.0-15.0) g/dL Hct 31.5 L (37.2-46.3) % Eosinophils # 0.01 L (0.04-0.35) X 10*3/uL POC Glucose (mg/dL) 188 H (75-99) mg/dL Assessment and Plan Assessment: Postoperative day #1 status post left total knee arthroplasty Plan: 1. Left knee osteoarthritis - left total knee arthroplasty performed yesterday, 09/01/2020. Patient stable this morning, and minimal pain. Patient will be discharged home today. 2. Pain management - stable at this time. On [place]. Will be going home with [place] 5mg/325mg 3. DVT prophylaxis - Lovenox in hospital. Patient going home with aspirin 81 mg twice a day 30 days 4. GI prophylaxis - senna in hospital. Patient going home with Colace 5. Encourage incentive spirometer use 6. PT/OT - weightbearing as tolerated/with walker for assistance. Patient does walker at home 7. Discharge planning- patient going home today, 09/02/2020 Time with Patient: Less than 30
[2020-09-03] MEDS: METOPROLOL TARTRATE 50 MG TAB PO SCH (10:49)
[2020-09-03] MEDS: metFORMIN 500 MG TAB PO SCH (10:50)
--- NOTE | 2020-09-03 11:24 | P.PN ---
Subjective Progress Note Date: 09/03/20 Hospital course: Patient is a 70-year-old female with a past medical history of hypertension, hyperlipidemia, type II ifn-pvlpuoz-wylaaztti diabetes mellitus, and left knee osteoarthritis who is currently admitted status post left total knee arthroplasty completed by Dr. Degroot and we have been following along for medical consult to provide continued medical management. Patient is day 1 postop reports doing well. Patient reports pain is controlled and denies having any postoperative nausea or vomiting. Patient has been ambulating with assistance. Post operative dressing in place with no signs of bleeding or drainage. LALITO hose and ice pack also in place. Patient denies having any other complaints including headache, lightheadedness, dizziness, chest pain, palpitations, shortness of breath, abdominal pain, difficulties with her changes in urinary or bowel function or experiencing any numbness/tingling/weakness. Physical exam: General: non toxic, no distress, appears at stated age Derm: warm, dry Head: atraumatic, normocephalic, symmetric Eyes: EOMI, no lid lag, anicteric sclera Mouth: no lip lesion, mucus membranes moist Cardiovascular: S1S2 reg, no murmur, positive posterior tibial pulse bilateral, Lungs: CTA bilateral, no rhonchi, no rales , no accessory muscle use Abdominal: soft, nontender to palpation, no guarding, no appreciable organomegaly Ext: no gross muscle atrophy, no edema, no contractures. Postoperative dressing in place to left knee, clean dry and intact no signs of bleeding or drainage. Neuro: CN II-XI grossly intact, no focal neuro deficits Psych: Alert, oriented, appropriate affect Plan of care: Status post total left knee arthroplasty -Pain management, DVT prophylaxis, PT/OT, weightbearing, and postoperative dressings to be managed per primary admitting orthopedic team. -Patient currently on DVT prophylaxis with Lovenox. Type II [id number] diabetes mellitus -Hold oral glycemic medications, patient placed on glycemic protocol with NovoLog sliding scale and may resume oral medication regimen upon discharge. -Heart healthy carb consistent diet. Hypertension -Monitor vital signs and continue daily medication management Hyperlipidemia -Continue daily medication regimen Thank you for allowing us to participate in the care of this pleasant patient. Do not hesitate to contact us with questions. Someone can be reached from the [facility] hospitalist group all hours of the day at [phone] or via perfect serve.. Objective - Vital Signs Vital signs: Vital Signs Temp 98.3 F 09/03/20 08:11 Pulse 83 09/03/20 08:11 Resp 17 09/03/20 08:11 BP 125/62 09/03/20 08:11 Pulse Ox 95 09/03/20 08:11 Intake & Output 09/02/20 09/03/20 09/03/20 18:59 06:59 18:59 Intake Total 850 Output Total 50 Balance 800 Weight 109.2 kg Intake: IV 850 Output: Estimated Blood Loss 50 Other: Voiding Method Toilet Toilet # Voids 1 4 - Labs CBC & Chem 7: 09/03/20 05:42 Labs: Abnormal Lab Results - Last 24 Hours (Table) 09/02/20 09/02/20 09/02/20 Range/Units 11:28 16:37 20:35 RBC (4.10-5.20) X 10*6/uL Hgb (12.0-15.0) g/dL Hct (37.2-46.3) % Eosinophils # (0.04-0.35) X 10*3/uL POC Glucose (mg/dL) 178 H 250 H 393 H (75-99) mg/dL 09/03/20 09/03/20 Range/Units 05:42 06:54 RBC 3.56 L (4.10-5.20) X 10*6/uL Hgb 11.0 L (12.0-15.0) g/dL Hct 31.5 L (37.2-46.3) % Eosinophils # 0.01 L (0.04-0.35) X 10*3/uL POC Glucose (mg/dL) 188 H (75-99) mg/dL
[2020-09-03 11:40] LABS: Glucose,Whole Blood 252 mg/dL (75-99)
[2020-09-03 13:17] VITALS: BP 147/78; PULSE 78; RESP 18; TEMP 98.1
[2020-09-03] MEDS ORDERED: INSULIN DETEMIR (LEVEMIR) 100 UNIT/ML SYR SQ SCH (21:00)
== END 2020-09-03 12:57 | disposition home health service (06) ==
LOC: OR 10:36 → 4SSUR 15:52 → OR 09-03 12:57
PROVIDERS: ATTEND Orthopaedic Surgery
DX: M17.12 Unilateral primary osteoarthritis, left knee (principal); I10 Essential (primary) hypertension; E78.5 Hyperlipidemia, unspecified; E11.9 Type 2 diabetes mellitus without complications; J45.909 Unspecified asthma, uncomplicated; G47.33 Obstructive sleep apnea (adult) (pediatric); Z97.2 Presence of dental prosthetic device (complete) (partial); K21.9 Gastro-esophageal reflux disease without esophagitis; M32.9 Systemic lupus erythematosus, unspecified; E87.5 Hyperkalemia; Z90.89 Acquired absence of other organs; Z90.710 Acquired absence of both cervix and uterus; Z87.891 Personal history of nicotine dependence; Z79.84 Long term (current) use of oral hypoglycemic drugs; Z79.51 Long term (current) use of inhaled steroids; Z79.899 Other long term (current) drug therapy
CPT/HCPCS: 94640; 97161; 64999; 64448; 76942; 85025; 88300; 73560; 27447; C1776; C1713 ×2; J2250; J1100; J0690 ×2; J2405; J3010; J1650; J1170 ×2; J2795 ×2; J2704

== ENCOUNTER 2020-09-30 13:41 | Inpatient (IN) | payer MEDICARE, OTHER ==
[2020-09-27 12:58] VITALS: BMI 42.5
[2020-09-30 14:35] LABS: Glucose,Whole Blood 159 mg/dL (75-99)
--- NOTE | 2020-09-30 14:36 | P.HPOR ---
History of Present Illness H&P Date: 09/30/20 Chief Complaint: Left knee distal incisional wound dehiscence 70-year-old patient who underwent elective left total knee arthroplasty 09/02/2020 was seen at a follow-up appointment with some distal incisional wound dehiscence. I recommended irrigation debridement and secondary repair. I discussed the procedure, risks complications and recovery. Patient was agreeable and consent was obtained. Review of Systems Constitutional: Reports as per HPI Ears, nose, mouth and throat: Reports as per HPI Past Medical History Past Medical History: Asthma, Blood Disorder, Diabetes Mellitus, GERD/Reflux, Hyperlipidemia, Hypertension, Osteoarthritis (OA), Sleep Apnea/CPAP/BIPAP Additional Past Medical History / Comment(s): lupus, thrombocytopenia. No cpap used. Open area of wound to left knee, on po AB Rx. History of Any Multi-Drug Resistant Organisms: MRSA Date of last positivie culture/infection: 2014 MDRO Source:: blood Past Surgical History: Appendectomy, Hysterectomy, Joint Replacement, Tonsillectomy Additional Past Surgical History / Comment(s): Varicose vein ablation bilat. Fatty "lump" exc Rt shoulder blade. Total Left knee 09/02/20 Past Anesthesia/Blood Transfusion Reactions: No Reported Reaction Smoking Status: Former smoker - Past Family History Father Brother(s) Family Medical History: Cancer Additional Family Medical History / Comment(s): Colon cancer. Sister(s) Family Medical History: Cancer Additional Family Medical History / Comment(s): Lung cancer. Medications and Allergies Home Medications Medication Instructions Recorded Confirmed Type Budesonide/Formoterol Fumarate 2 puff INHALATION BID 05/09/18 09/27/20 History [Symbicort 160-4.5 Mcg Inhaler] Metoprolol Tartrate [Lopressor] 100 mg PO BID 05/09/18 09/27/20 History Multivitamins, Thera [Multivitamin 1 tab PO DAILY 05/09/18 09/27/20 History (formulary)] Omeprazole 20 mg PO QAM 05/09/18 09/27/20 History Oxybutynin Chloride [Ditropan] 5 mg PO HS 05/09/18 09/27/20 History amLODIPine [Norvasc] 5 mg PO QAM 05/09/18 09/27/20 History glipiZIDE [Glucotrol] 20 mg PO HS 05/09/18 09/27/20 History metFORMIN HCL [Glucophage] 1,000 mg PO BID 05/09/18 09/27/20 History Atorvastatin [Lipitor] 20 mg PO HS 03/12/20 09/27/20 History Cinnamon Bark [Cinnamon] 1,000 mg PO BID 03/12/20 09/27/20 History Lisinopril-Hctz 20-12.5 mg 1 tab PO QAM 03/12/20 09/27/20 History [Zestoretic 20-12.5] [place]-3 Fatty Acids/Fish Oil [Fish 1 each PO DAILY 03/12/20 09/27/20 History Oil 1,000 mg Softgel] sitaGLIPtin PHOSPHATE [Januvia] 100 mg PO DAILY 03/12/20 09/27/20 History Pioglitazone [Actos] 15 mg PO QAM 08/29/20 09/27/20 History Aspirin [Adult Low Dose Aspirin EC] 81 mg PO BID #60 tablet. 09/03/20 09/27/20 Rx HYDROcodone/APAP 5-325MG [[place] 1 tab PO Q6HR PRN #30 tab 09/03/20 09/27/20 Rx 5-325] Cephalexin [Keflex] 500 mg PO Q6HR 09/27/20 09/27/20 History Docusate Sodium [Dok] 100 mg PO DAILY 09/27/20 09/27/20 History Allergies Allergy/AdvReac Type Severity Reaction Status Date / Time No Known Allergies Allergy Verified 09/30/20 14:13 Physical Examination Osteopathic Statement: *. No significant issues noted on an osteopathic structural exam other than those noted in the History and Physical/Consult. There is some dehiscence of the distal incisional wound left knee. Range of motion 0-90 without any significant pain. Maybe some very mild erythema around the distal incisional wound dehiscence area. There is no obvious evidence for intra-articular effusion. Her ligaments appear stable. Homans and Matt or negative. Her distal neurovascular exam is intact. Results - Diagnostic results Knee x-ray: image reviewed (Stable left total knee arthroplasty) Assessment and Plan Assessment: 1. Left knee distal incisional wound dehiscence 2. History left total knee arthroplasty Plan: Irrigation and debridement left knee incision with secondary repair Time with Patient: Less than 30
[2020-09-30] MEDS ORDERED: ONDANSETRON 4 MG/2 ML VIAL ONE (14:42)
[2020-09-30] MEDS ORDERED: LIDOCAINE 1% (10MG/ML) FOR IV START INTRADERMA ONE (14:42)
[2020-09-30] MEDS ORDERED: LACTATED RINGERS 1,000 ML IV ONE (14:42)
[2020-09-30] MEDS ORDERED: LIDOCAINE 1% INJ 10MG/ML (20 ML MDV) ONE (14:49)
[2020-09-30] MEDS ORDERED: fentaNYL (PF) 50 MCG/ML 2 ML AMP ONE (14:49)
[2020-09-30] MEDS ORDERED: HYDROmorphone (PF) 1 MG/ML ONE (14:49)
[2020-09-30] MEDS ORDERED: MIDAZOLAM 2 MG/2 ML VIAL ONE (14:49)
[2020-09-30] MEDS ORDERED: PROPOFOL 10 MG/ML 20 ML VIAL IV ONE (14:49)
[2020-09-30] MEDS ORDERED: DEXAMETHASONE SOD PHOSPHATE 4 MG/ML 1 ML VIAL IV ONE (14:50)
[2020-09-30 14:57] LABS: Potassium 3.8 mmol/L (3.5-5.1)
[2020-09-30] MEDS ORDERED: ceFAZolin 1,000 MG in SODIUM CHLORIDE 0.9% 1,000 ML IRRIGATION ONE (15:14)
[2020-09-30] MEDS ORDERED: ceFAZolin 3,000 MG in SODIUM CHLORIDE 0.9% IRRIGATIO 3,000 ML IRRIGATION ONE (15:21)
[2020-09-30] MEDS ORDERED: HYDROmorphone 0.2 MG/1 ML SYRINGE IVP PRN (16:02)
[2020-09-30] MEDS ORDERED: HYDROcodone/APAP 5-325MG 1 EACH TAB PO PRN ×2 (16:02)
[2020-09-30] MEDS ORDERED: HYDROmorphone 0.5 MG/0.5 ML SYRINGE IVP PRN ×2 (16:02)
[2020-09-30] MEDS ORDERED: ONDANSETRON 4 MG/2 ML VIAL IVP PRN (16:02)
[2020-09-30] MEDS ORDERED: NALOXONE 0.4 MG/ML 1 ML VIAL IV PRN (16:02)
--- NOTE | 2020-09-30 16:02 | P.OP ---
Date of Procedure: 09/30/20 Preoperative Diagnosis: Left knee incisional dehiscence Postoperative Diagnosis: Same Procedure(s) Performed: Irrigation and excisional debridement left knee wound with secondary closure Anesthesia: YOGESH Surgeon: Avi Degroot Chainstitch Binder #1: Nilesh Montalvo Estimated Blood Loss (ml): 15 Pathology: other (Cultures) Condition: stable Disposition: PACU Indications for Procedure: 70-year-old patient seen with a left knee incisional dehiscence with history of recent total knee arthroplasty. We recommended irrigation and debridement and secondary closure. Patient was agreeable. Consent was obtained. Operative Findings: See description of procedure Description of Procedure: Patient was taken to the operative suite. She received preoperative IV antibiotics. She underwent a general anesthetic by the department of anesthesia. A well-padded tourniquet placed proximal left lower extremity. Left lower extremity was prepped and draped in the normal sterile orthopedic fashion. The extremity was elevated and tourniquet insufflated to 300. We began by debriding out the superficial necrotic appearing skin and subcu cutaneous tissues with a #15 blade. We did open up the incision about 3-4 cm distally to better evaluate the extensor mechanism. I was unable to visualize extensor mechanism. It was intact. There was no evidence for any communication into the joint. I did obtain cultures of the distal portion of the wound. We now irrigated the wound copiously with 4000 L of irrigant mechanical pulse lavage. I evaluated the wound and noted all necrotic appearing tissue was successfully debrided out. The extensor mechanism was completely intact. We now began repairing the subcu soft tissues with 2-0 Vicryl. There was quite a bit attention distally with this lady having +2/3 edema. We now repaired the skin margins utilizing nylon suture. Again distally was quite tight. We did have a good complete closure of the wound. Sterile dressings were applied. Tourniquet was deflated with immediate capillary refill the entire extremity noted. Additional dressings were applied followed by loose Misael bandage. The patient was awakened and transferred recovery stable condition. Clifton ELIAS assisted with this procedure.
[2020-09-30 16:11] LABS: Glucose,Whole Blood 169 mg/dL (75-99)
[2020-09-30] MEDS ORDERED: HYDROmorphone 1 MG/ML 1 ML SYRINGE ONE (16:30)
[2020-09-30] MEDS ORDERED: HYDROmorphone 1 MG/ML 1 ML SYRINGE IVP ONE (16:31)
[2020-09-30 20:22] LABS: Glucose,Whole Blood 260 mg/dL (75-99)
[2020-09-30] MEDS: SENNOSIDES-DOCUSATE SODIUM 1 EACH TAB PO SCH (20:35)
[2020-09-30] MEDS: LACTATED RINGERS 1,000 ML IV SCH (20:36)
--- NOTE | 2020-09-30 21:56 | P.CONS ---
History of Present Illness - Reason for Consult Consult date: 09/30/20 Management postoperatively of hypertension and diabetes Requesting physician: Avi Degroot - Chief Complaint Left knee surgical wound dehiscence - History of Present Illness 70-year-old female with diabetes mellitus type 2 and hypertension Patient comes in for scheduled for revision of her left knee surgical wound dehiscence post left total knee replacement about a month ago. She was having regular follow-up with her surgeon within like looks like and recommended that she comes back to the hospital for wound revision and cleaning. Otherwise he denies any fevers or chills denies any extensive swelling in her legs denies any chest pain trouble breathing nausea vomiting abdominal pain. She tolerated procedure well currently she feels pain is well tolerated and controlled. She tolerated by mouth intake she has no medical concerns at this time Review of Systems Pertinent positives as noted in HPI. All other systems were reviewed and are negative Past Medical History Past Medical History: Asthma, Blood Disorder, Diabetes Mellitus, GERD/Reflux, Hyperlipidemia, Hypertension, Osteoarthritis (OA), Sleep Apnea/CPAP/BIPAP Additional Past Medical History / Comment(s): lupus, thrombocytopenia. No cpap used. Open area of wound to left knee, on po AB Rx. History of Any Multi-Drug Resistant Organisms: MRSA Year Discovered:: 2014 MDRO Source:: blood Past Surgical History: Appendectomy, Hysterectomy, Joint Replacement, Tonsillectomy Additional Past Surgical History / Comment(s): Varicose vein ablation bilat. Fatty "lump" exc Rt shoulder blade. Total Left knee 09/02/20 Past Anesthesia/Blood Transfusion Reactions: No Reported Reaction Past Psychological History: No Psychological Hx Reported Smoking Status: Former smoker Past Alcohol Use History: Occasional Additional Past Alcohol Use History / Comment(s): Smoked 20 years, 1/2 ppd, quit 1990 Past Drug Use History: None Reported - Past Family History Father Brother(s) Family Medical History: Cancer Additional Family Medical History / Comment(s): Colon cancer. Sister(s) Family Medical History: Cancer Additional Family Medical History / Comment(s): Lung cancer. Medications and Allergies Home Medications Medication Instructions Recorded Confirmed Type Budesonide/Formoterol Fumarate 2 puff INHALATION BID 05/09/18 09/27/20 History [Symbicort 160-4.5 Mcg Inhaler] Metoprolol Tartrate [Lopressor] 100 mg PO BID 05/09/18 09/27/20 History Multivitamins, Thera [Multivitamin 1 tab PO DAILY 05/09/18 09/27/20 History (formulary)] Omeprazole 20 mg PO QAM 05/09/18 09/27/20 History Oxybutynin Chloride [Ditropan] 5 mg PO HS 05/09/18 09/27/20 History amLODIPine [Norvasc] 5 mg PO QAM 05/09/18 09/27/20 History glipiZIDE [Glucotrol] 20 mg PO HS 05/09/18 09/27/20 History metFORMIN HCL [Glucophage] 1,000 mg PO BID 05/09/18 09/27/20 History Atorvastatin [Lipitor] 20 mg PO HS 03/12/20 09/27/20 History Cinnamon Bark [Cinnamon] 1,000 mg PO BID 03/12/20 09/27/20 History Lisinopril-Hctz 20-12.5 mg 1 tab PO QAM 03/12/20 09/27/20 History [Zestoretic 20-12.5] [place]-3 Fatty Acids/Fish Oil [Fish 1 each PO DAILY 03/12/20 09/27/20 History Oil 1,000 mg Softgel] sitaGLIPtin PHOSPHATE [Januvia] 100 mg PO DAILY 03/12/20 09/27/20 History Pioglitazone [Actos] 15 mg PO QAM 08/29/20 09/27/20 History Aspirin [Adult Low Dose Aspirin EC] 81 mg PO BID #60 tablet. 09/03/20 09/27/20 Rx HYDROcodone/APAP 5-325MG [[place] 1 tab PO Q6HR PRN #30 tab 09/03/20 09/27/20 Rx 5-325] Cephalexin [Keflex] 500 mg PO Q6HR 09/27/20 09/27/20 History Docusate Sodium [Dok] 100 mg PO DAILY 09/27/20 09/27/20 History Allergies Allergy/AdvReac Type Severity Reaction Status Date / Time No Known Allergies Allergy Verified 09/30/20 14:13 Physical Exam Vitals: Vital Signs Temp Pulse Pulse Pulse Resp BP BP 09/30/20 18:39 86 162/78 09/30/20 18:24 91 151/82 09/30/20 18:14 98.1 F 92 18 163/83 09/30/20 17:33 82 16 170/81 09/30/20 17:15 80 16 189/80 09/30/20 16:58 77 16 178/84 09/30/20 16:44 75 16 175/84 09/30/20 16:15 77 16 175/82 09/30/20 15:57 97.3 F L 84 16 170/77 09/30/20 14:21 98.4 F 89 16 175/85 Pulse Ox 09/30/20 18:39 97 09/30/20 18:24 96 09/30/20 18:14 96 09/30/20 17:33 98 09/30/20 17:15 98 09/30/20 16:58 98 09/30/20 16:44 98 09/30/20 16:15 98 09/30/20 15:57 94 L 09/30/20 14:21 95 Intake and Output 09/30/20 09/30/20 09/30/20 06:59 14:59 22:59 Intake Total 650 2 Output Total 15 Balance 650 -13 Intake: IV 650 2 Output: Estimated Blood Loss 15 Other: Weight 109 kg 109 kg Constitutional: No acute distress, conversant, pleasant Eyes: Anicteric sclerae, moist conjunctiva, Pupils equal round reactive to light ENMT: NC/AT Oropharynx clear, no erythema, or exudates Neck: Supple, FROM, no masses, or JVD No carotid bruits No thyromegaly Lungs: Clear to auscultation Clear to percussion Normal respiratory effort, no accessory muscle use Cardiovascular: Heart regular in rate and rhythm, No murmurs, gallops, or rubs No peripheral edema Abdominal: Soft Nontender, no guarding, rebound or rigidity Abdomen moving with respiration Normoactive bowel sounds No hepatomegaly, No splenomegaly No palpable mass No abdominal wall hernia noted Skin: Normal temperature, tone, texture, turgor No induration No subcutaneous nodules No rash, lesions No ulcers Extremities: No digital cyanosis No clubbing Pedal pulses intact and symmetrical Radial pulses intact and symmetrical No calf tenderness Psychiatric: Alert and oriented to person, place and time Appropriate affect fair judgement Neuro Muscles Strength 5/5 in bilateral upper extremity and right lower extremity. Left lower extremity limited exam due to surgical dressing and recent surgery Sensation to light touch grossly present throughout Cranial nerves II-XII grossly intact No focal sensory deficits Lymphatics: no palpable cervical or supraclavicular , or inguinal lymph nodes Results CBC & Chem 7: 09/30/20 14:43 Labs: Abnormal Lab Results - Last 24 Hours (Table) 09/30/20 09/30/20 09/30/20 Range/Units 14:33 14:43 16:10 Sodium 136 L (137-145) mmol/L POC Glucose (mg/dL) 159 H 169 H (75-99) mg/dL 09/30/20 Range/Units 20:20 Sodium (137-145) mmol/L POC Glucose (mg/dL) 260 H (75-99) mg/dL Assessment and Plan Assessment: Surgical wound revision and cleaning due to wound dehiscence postoperative day 0 Management per orthopedic recommendations Pain control Hyperglycemia with diabetes mellitus type 2 Start patient on insulin sliding scale Hold oral hypoglycemic agents Check A1c Hypertension controlled Resume lisinopril hydrochlorothiazide and metoprolol Follow-up morning labs basic metabolic panel and CBC Thank you for allowing us to participate in the care of this patient. Do not hesitate to contact us with questions. Someone can be reached from the [facility] hospitalist group at all hours of the day at [phone].
[2020-09-30] MEDS: SYMBICORT 160-4.5 MCG INHALER INHALATION SCH (22:07)
[2020-09-30] MEDS: METOPROLOL TARTRATE 50 MG TAB PO SCH (23:15)
[2020-09-30] MEDS: ATORVASTATIN 20 MG TAB PO SCH (23:16)
[2020-10-01] MEDS: LACTATED RINGERS 1,000 ML IV SCH ×3 (01:52→21:24)
[2020-10-01 06:56] LABS: Glucose,Whole Blood 252 mg/dL (75-99)
[2020-10-01] MEDS: SYMBICORT 160-4.5 MCG INHALER INHALATION SCH ×2 (08:18→21:50)
[2020-10-01] MEDS: amLODIPine 5 MG TAB PO SCH (09:22)
[2020-10-01] MEDS: PANTOPRAZOLE 40 MG TABLET PO SCH (09:22)
[2020-10-01] MEDS: ENOXAPARIN 30 MG/0.3 ML SYRINGE SQ SCH ×2 (09:22→21:23)
[2020-10-01] MEDS: METOPROLOL TARTRATE 50 MG TAB PO SCH ×2 (09:22→21:23)
[2020-10-01] MEDS: DOCUSATE 100 MG CAP PO SCH (09:22)
[2020-10-01] MEDS: LISINOPRIL-HCTZ 20-12.5 MG 1 EACH TAB PO SCH (09:23)
[2020-10-01 09:44] LABS: Glucose,Whole Blood 301 mg/dL (75-99)
[2020-10-01 11:05] LABS: Basophils # (A) 0.01 X 10*3/uL (0.00-0.10); Basophils % (A) 0.1 %; Eosinophils # (A) 0 X 10*3/uL (0.04-0.35); Eosinophils % (A) 0 %; HCT 32.4 % (37.2-46.3); HGB 10.8 g/dL (12.0-15.0); Lymphocytes # (A) 1.41 X 10*3/uL (0.90-5.00); Lymphocytes % (A) 19.3 %; MCHC 33.3 g/dL (32.0-37.0); Mean Platelet Volume 9.6 fL (9.5-12.2); Monocytes # (A) 0.47 X 10*3/uL (0.20-1.00); Monocytes % (A) 6.4 %; Neutrophils # (A) 5.38 X 10*3/uL (1.80-7.70); Neutrophils % (A) 73.8 %; Platelet Count 188 X 10*3/uL (140-440); RDW 12.7 % (11.5-14.5)
[2020-10-01 11:23] LABS: Glucose,Whole Blood 259 mg/dL (75-99)
[2020-10-01] MEDS: INSULIN ASPART (NovoLOG) 100 UNIT/ML VIAL SQ SCH ×4 (12:05→21:41)
--- NOTE | 2020-10-01 12:41 | P.PN ---
Subjective Progress Note Date: 10/01/20 Patient is doing fairly well today. Her pain is well-controlled. No acute events overnight. I had a prolonged discussion today with the patient regarding lower extremity swelling. She told me that her legs are normal in the morning and swelling get worse throughout the day. She usually wear compression stocking at home that resolved her symptoms. Objective - Vital Signs Vital signs: Vital Signs Temp 98.1 F 10/01/20 08:00 Pulse 87 10/01/20 08:00 Resp 16 10/01/20 08:00 BP 138/74 10/01/20 08:00 Pulse Ox 96 10/01/20 08:00 Intake & Output 09/30/20 10/01/20 10/01/20 18:59 06:59 18:59 Intake Total 652 Output Total 15 1550 Balance 637 -1550 Weight 109 kg Intake: IV 652 Output: Urine 1550 Estimated Blood Loss 15 Other: Voiding Method Toilet - Exam General: The patient is awake and alert, in no distress Eye: there is normal conjunctiva bilaterally. Neck: The neck is supple, there is no JVD. Cardiovascular: Normal S1-S2, no S3-S4, no murmurs. Respiratory: Lungs clear to auscultation bilaterally Gastrointestinal: Abdomen is soft, nontender Musculoskeletal: There is no pedal edema on the right. Left lower extremity wrapped was clean dressing/Misael wrap Neurological:. Speech is normal. Skin: Skin is warm and dry - Labs CBC & Chem 7: 10/01/20 07:36 09/30/20 14:43 Labs: Abnormal Lab Results - Last 24 Hours (Table) 09/30/20 09/30/20 09/30/20 Range/Units 14:33 14:43 16:10 RBC (4.10-5.20) X 10*6/uL Hgb (12.0-15.0) g/dL Hct (37.2-46.3) % Eosinophils # (0.04-0.35) X 10*3/uL Sodium 136 L (137-145) mmol/L POC Glucose (mg/dL) 159 H 169 H (75-99) mg/dL 09/30/20 10/01/20 10/01/20 Range/Units 20:20 06:55 07:36 RBC 3.60 L (4.10-5.20) X 10*6/uL Hgb 10.8 L (12.0-15.0) g/dL Hct 32.4 L (37.2-46.3) % Eosinophils # 0 L (0.04-0.35) X 10*3/uL Sodium (137-145) mmol/L POC Glucose (mg/dL) 260 H 252 H (75-99) mg/dL 10/01/20 10/01/20 Range/Units 09:43 11:21 RBC (4.10-5.20) X 10*6/uL Hgb (12.0-15.0) g/dL Hct (37.2-46.3) % Eosinophils # (0.04-0.35) X 10*3/uL Sodium (137-145) mmol/L POC Glucose (mg/dL) 301 H 259 H (75-99) mg/dL Microbiology - Last 24 Hours (Table) 09/30/20 15:30 Gram Stain - Preliminary Knee - Left Wound Culture - Preliminary 09/30/20 15:30 Anaerobic Culture - Preliminary Knee - Left Assessment and Plan Assessment: 1. Postoperative day #1 status post surgical wound revision and cleaning appointment dehiscence of the left knee, postoperative care per orthopedic surgery 2. Type 2 diabetes, currently on sliding scale insulin. Follow-up outpatient 3. Essential hypertension, blood pressure within acceptable range Today, I reviewed her medication list and lab work results. Continue current regimen. Discharge planning per primary team.
[2020-10-01 13:58] LABS: African American GFR (CKD) 103.2 (60.0-200.0); Anion Gap 9.6 mmol/L (4.00-12.00); BUN/Creat Ratio 21.43 Ratio (12.00-20.00); Carbon Dioxide 28.4 mmol/L (21.6-31.8); Potassium 3.9 mmol/L (3.5-5.5)
[2020-10-01 14:21] LABS: Hemoglobin A1C 6.1 % (4.0-6.0)
--- NOTE | 2020-10-01 15:26 | P.PN ---
Subjective Progress Note Date: 10/01/20 Principal diagnosis: Status post irrigation with excisional debridement left knee wound with secondary wound closure Patient was examined today at bedside, she is resting in a hospital chair. She states she is feeling good at this time. She is ambulating with minimal difficulty. She denies any worsening pain of the left knee at this time. She denies any headaches, lightheadedness, shortness of breath, nausea vomiting. Objective - Vital Signs Vital signs: Vital Signs Temp 97.8 F 10/01/20 14:00 Pulse 80 10/01/20 14:00 Resp 18 10/01/20 14:00 BP 150/67 10/01/20 14:00 Pulse Ox 96 10/01/20 14:00 Intake & Output 09/30/20 10/01/20 10/01/20 18:59 06:59 18:59 Intake Total 652 Output Total 15 1550 Balance 637 -1550 Weight 109 kg Intake: IV 652 Output: Urine 1550 Estimated Blood Loss 15 Other: Voiding Method Toilet - Exam Left lower extremity: Incision is clean, dry, and intact. The sutures are in good condition. There is minimal soft tissue swelling and ecchymosis surrounding the medial and lateral aspects of the incision. Obvious soft tissue swelling in the lower extremity present, 2+ pitting edema Calf is soft, no tenderness with palpation. Plantar flexion, dorsiflexion, EHL, FHL are intact. Sensory exam to light touch throughout the extremity is intact, dorsal pedis pulses 2+. - Labs CBC & Chem 7: 10/01/20 07:36 10/01/20 07:36 Labs: Abnormal Lab Results - Last 24 Hours (Table) 09/30/20 09/30/20 10/01/20 Range/Units 16:10 20:20 06:55 RBC (4.10-5.20) X 10*6/uL Hgb (12.0-15.0) g/dL Hct (37.2-46.3) % Eosinophils # (0.04-0.35) X 10*3/uL BUN/Creatinine Ratio (12.00-20.00) Ratio Glucose (70-110) mg/dL POC Glucose (mg/dL) 169 H 260 H 252 H (75-99) mg/dL Hemoglobin A1c (4.0-6.0) % 10/01/20 10/01/20 10/01/20 Range/Units 07:36 07:36 07:36 RBC 3.60 L (4.10-5.20) X 10*6/uL Hgb 10.8 L (12.0-15.0) g/dL Hct 32.4 L (37.2-46.3) % Eosinophils # 0 L (0.04-0.35) X 10*3/uL BUN/Creatinine Ratio 21.43 H (12.00-20.00) Ratio Glucose 216 H (70-110) mg/dL POC Glucose (mg/dL) (75-99) mg/dL Hemoglobin A1c 6.1 H (4.0-6.0) % 10/01/20 10/01/20 Range/Units 09:43 11:21 RBC (4.10-5.20) X 10*6/uL Hgb (12.0-15.0) g/dL Hct (37.2-46.3) % Eosinophils # (0.04-0.35) X 10*3/uL BUN/Creatinine Ratio (12.00-20.00) Ratio Glucose (70-110) mg/dL POC Glucose (mg/dL) 301 H 259 H (75-99) mg/dL Hemoglobin A1c (4.0-6.0) % Microbiology - Last 24 Hours (Table) 09/30/20 15:30 Gram Stain - Preliminary Knee - Left Wound Culture - Preliminary 09/30/20 15:30 Anaerobic Culture - Preliminary Knee - Left Assessment and Plan Assessment: Status post irrigation with excisional debridement left knee wound with secondary wound closure Plan: Initial Gram stain showing gram-positive cocci, it was noted at surgery that the dehiscence was superficial and did not extend deep, all the deep structures were intact. I would like to keep patient in hospital for 1 additional night for continuation of IV antibiotics and transition to oral antibiotics at discharge. Will monitor for final cultures Pain control, continue with current medication GI and DVT prophylaxis, continue with current medication Activity level instructions were discussed, this including avoiding excess physical therapy mainly with flexion Wound care instructions were discussed with patient Medical recommendations appreciated Discharge planning: Anticipate discharge home tomorrow Time with Patient: Less than 30
[2020-10-01 16:38] LABS: Glucose,Whole Blood 310 mg/dL (75-99)
[2020-10-01] MEDS: OXYBUTYNIN CHLORIDE 5 MG TAB PO SCH (21:23)
[2020-10-01] MEDS: SENNOSIDES-DOCUSATE SODIUM 1 EACH TAB PO SCH (21:23)
[2020-10-01] MEDS: ATORVASTATIN 20 MG TAB PO SCH (21:23)
[2020-10-01 21:26] LABS: Glucose,Whole Blood 273 mg/dL (75-99)
[2020-10-01] MEDS ORDERED: INSULIN ASPART (NovoLOG) 100 UNIT/ML VIAL SQ SCH (21:43)
[2020-10-02] MEDS: LACTATED RINGERS 1,000 ML IV SCH ×2 (02:30→17:20)
[2020-10-02 06:59] LABS: Glucose,Whole Blood 185 mg/dL (75-99)
[2020-10-02] MEDS: SYMBICORT 160-4.5 MCG INHALER INHALATION SCH ×2 (07:13→20:33)
[2020-10-02] MEDS: METOPROLOL TARTRATE 50 MG TAB PO SCH ×2 (08:22→20:35)
[2020-10-02] MEDS: amLODIPine 5 MG TAB PO SCH (08:23)
[2020-10-02] MEDS: PANTOPRAZOLE 40 MG TABLET PO SCH (08:23)
[2020-10-02] MEDS: ENOXAPARIN 30 MG/0.3 ML SYRINGE SQ SCH ×2 (08:23→20:36)
[2020-10-02] MEDS: DOCUSATE 100 MG CAP PO SCH (08:23)
[2020-10-02] MEDS: INSULIN ASPART (NovoLOG) 100 UNIT/ML VIAL SQ SCH ×4 (08:23→20:36)
[2020-10-02] MEDS: LISINOPRIL-HCTZ 20-12.5 MG 1 EACH TAB PO SCH (08:23)
[2020-10-02] MEDS ORDERED: CEFEPIME 2 GM in SODIUM CHLORIDE 0.9% 100 ML IVPB ONE (09:30)
--- NOTE | 2020-10-02 11:19 | P.PN ---
Subjective Progress Note Date: 10/02/20 Patient is doing fairly well today. No acute events overnight. Left lower extremity swelling is about the same. Patient told me that at home when she is wearing compression stocking and elevating her legs swelling is significantly better. Objective - Vital Signs Vital signs: Vital Signs Temp 98.2 F 10/02/20 08:00 Pulse 87 10/02/20 08:00 Resp 16 10/02/20 08:00 BP 160/76 10/02/20 08:00 Pulse Ox 98 10/02/20 08:00 Intake & Output 10/01/20 10/02/20 10/02/20 18:59 06:59 18:59 Intake Total 1200 Balance 1200 Intake: IV 1200 Lactated Ringers 1,000 ml 1200 @ 100 mls/hr IV .Q10H [facility] Rx#:[id number] Other: Voiding Method Toilet # Voids 3 - Exam General: The patient is awake and alert, in no distress Eye: there is normal conjunctiva bilaterally. Neck: The neck is supple, there is no JVD. Cardiovascular: Normal S1-S2, no S3-S4, no murmurs. Respiratory: Lungs clear to auscultation bilaterally Gastrointestinal: Abdomen is soft, nontender Musculoskeletal: There is no pedal edema on the right. Left lower extremity wrapped was clean dressing/Misael wrap Neurological:. Speech is normal. Skin: Skin is warm and dry - Labs CBC & Chem 7: 10/01/20 07:36 10/01/20 07:36 Labs: Abnormal Lab Results - Last 24 Hours (Table) 10/01/20 10/01/20 10/01/20 Range/Units 07:36 07:36 11:21 BUN/Creatinine Ratio 21.43 H (12.00-20.00) Ratio Glucose 216 H (70-110) mg/dL POC Glucose (mg/dL) 259 H (75-99) mg/dL Hemoglobin A1c 6.1 H (4.0-6.0) % 10/01/20 10/01/20 10/02/20 Range/Units 16:36 21:24 06:58 BUN/Creatinine Ratio (12.00-20.00) Ratio Glucose (70-110) mg/dL POC Glucose (mg/dL) 310 H 273 H 185 H (75-99) mg/dL Hemoglobin A1c (4.0-6.0) % Microbiology - Last 24 Hours (Table) 09/30/20 15:30 Gram Stain - Preliminary Knee - Left Wound Culture - Preliminary Gram Neg Bacilli Strep agalactiae - (group b) Assessment and Plan Assessment: 1. Postoperative day #2 status post surgical wound revision and cleaning appointment dehiscence of the left knee, postoperative care per orthopedic surgery 2. Type 2 diabetes, currently on sliding scale insulin. Follow-up outpatient 3. Essential hypertension, blood pressure within acceptable range Today, I reviewed her medication list and lab work results. Continue current regimen. Discharge planning per primary team. Discussed with patient to follow-up with her PCP and possibly been taking off of amlodipine as that might be contributing to her lower extremity edema
[2020-10-02 11:48] LABS: Glucose,Whole Blood 268 mg/dL (75-99)
--- NOTE | 2020-10-02 12:30 | P.PN ---
Subjective Progress Note Date: 10/02/20 Principal diagnosis: Status post irrigation with excisional debridement left knee wound with secondary wound closure Patient was examined today at bedside, she is resting in a hospital chair. She states she is feeling good at this time. She is ambulating with minimal difficulty. She denies any worsening pain of the left knee at this time. She denies any headaches, lightheadedness, shortness of breath, nausea vomiting. Discussed with nursing infectious disease recommendations, they are talking about a PICC line. They're awaiting final culture and sensitivity for outpa tient antibiotic choice. Objective - Vital Signs Vital signs: Vital Signs Temp 98.2 F 10/02/20 08:00 Pulse 87 10/02/20 08:00 Resp 16 10/02/20 08:00 BP 160/76 10/02/20 08:00 Pulse Ox 98 10/02/20 08:00 Intake & Output 10/01/20 10/02/20 10/02/20 18:59 06:59 18:59 Intake Total 1200 Balance 1200 Intake: IV 1200 Lactated Ringers 1,000 ml 1200 @ 100 mls/hr IV .Q10H [facility] Rx#:[id number] Other: Voiding Method Toilet # Voids 3 - Exam Left lower extremity: Incision is clean, dry, and intact. The sutures are in good condition. There is minimal soft tissue swelling and ecchymosis surrounding the medial and latera l aspects of the incision. Obvious soft tissue swelling in the lower extremity present, 2+ pitting edema Calf is soft, no tenderness with palpation. Plantar flexion, dorsiflexion, EHL, FHL are intact. Sensory exam to light touch throughout the extremity is intact, dorsal pedis pulses 2+. - Labs CBC & Chem 7: 10/01/20 07:36 10/01/20 07:36 Labs: Abnormal Lab Results - Last 24 Hours (Table) 10/01/20 10/01/20 10/01/20 Range/Units 07:36 07:36 16:36 BUN/Creatinine Ratio 21.43 H (12.00-20.00) Ratio Glucose 216 H (70-110) mg/dL POC Glucose (mg/dL) 310 H (75-99) mg/dL Hemoglobin A1c 6.1 H (4.0-6.0) % 10/01/20 10/02/20 10/02/20 Range/Units 21:24 06:58 11:46 BUN/Creatinine Ratio (12.00-20.00) Ratio Glucose (70-110) mg/dL POC Glucose (mg/dL) 273 H 185 H 268 H (75-99) mg/dL Hemoglobin A1c (4.0-6.0) % Microbiology - Last 24 Hours (Table) 09/30/20 15:30 Gram Stain - Preliminary Knee - Left Wound Culture - Preliminary Gram Neg Bacilli Strep agalactiae - (group b) Assessment and Plan Assessment: Status post irrigation with excisional debridement left knee wound with secondary wound closure Plan: Pain control, continue with current medication GI and DVT prophylaxis, continue with current medication Activity level instructions were discussed, this including avoiding excess physical therapy mainly with flexion Await final culture and sensitivity results, infectious disease recommendations appreciated Wound care instructions were discussed with patient Medical recommendations appreciated Discharge planning: Anticipate discharge home in the next few days Time with Patient: Less than 30
[2020-10-02] MEDS: CEFEPIME 2 GM in SODIUM CHLORIDE 0.9% 100 ML IVPB SCH ×2 (15:08→23:34)
[2020-10-02 16:32] LABS: Glucose,Whole Blood 215 mg/dL (75-99)
[2020-10-02 20:30] LABS: Glucose,Whole Blood 316 mg/dL (75-99)
[2020-10-02] MEDS: SENNOSIDES-DOCUSATE SODIUM 1 EACH TAB PO SCH (20:35)
[2020-10-02] MEDS: OXYBUTYNIN CHLORIDE 5 MG TAB PO SCH (20:36)
[2020-10-02] MEDS: ATORVASTATIN 20 MG TAB PO SCH (20:36)
--- NOTE | 2020-10-02 20:49 | P.CONS ---
History of Present Illness - Reason for Consult Consult date: 10/02/20 Wound infection/outpatient antibiotics Requesting physician: Nilesh Montalvo - Chief Complaint Left knee pain redness x few days - History of Present Illness Patient is a 70-year-old female who is status post elective left total knee arthroplasty completed on 09/02/2020 patient was seen on a follow-up visit by orthopedics and noticed to have some distal incision wound dehiscence for the patient was admitted to the hospital on 09/30/2020 patient was taken to the OR that afternoon and the patient is post irrigation and excisional debridement of the left knee wound with secondary closure there was removal of the superficial necrotic appearing skin and subcutaneous tissue there was no evidence of any communication into the joint cultures were obtained from distal portion of the wound which are now coming back positive with gram-negative and Streptococcus agalactiae, patient is currently being treated with cefazolin infectious disease was consulted for further management and arrangement of outpatient IV antibiotic therapy. Patient did not have any fever during this admission did have a normal white count on admission and creatinine was normal no blood cultures were done, patient denies having any fever or chills though patient did have pain to the left knee area more of a dull aching 4-5 out of 10 no radiation controlled with pain medication denies any chest pain shortness of the cough no abdominal pain no diarrhea. Review of Systems Positive point has been mentioned in the HPI rest of the systems are negative Past Medical History Past Medical History: Asthma, Blood Disorder, Diabetes Mellitus, GERD/Reflux, Hyperlipidemia, Hypertension, Osteoarthritis (OA), Sleep Apnea/CPAP/BIPAP Additional Past Medical History / Comment(s): lupus, thrombocytopenia. No cpap used. Open area of wound to left knee, on po AB Rx. History of Any Multi-Drug Resistant Organisms: MRSA Year Discovered:: 2014 MDRO Source:: blood Past Surgical History: Appendectomy, Hysterectomy, Joint Replacement, Tonsillectomy Additional Past Surgical History / Comment(s): Varicose vein ablation bilat. Fatty "lump" exc Rt shoulder blade. Total Left knee 09/02/20 Past Anesthesia/Blood Transfusion Reactions: No Reported Reaction Past Psychological History: No Psychological Hx Reported Smoking Status: Former smoker Past Alcohol Use History: Occasional Additional Past Alcohol Use History / Comment(s): Smoked 20 years, 1/2 ppd, quit 1990 Past Drug Use History: None Reported - Past Family History Father Brother(s) Family Medical History: Cancer Additional Family Medical History / Comment(s): Colon cancer. Sister(s) Family Medical History: Cancer Additional Family Medical History / Comment(s): Lung cancer. Medications and Allergies Home Medications Medication Instructions Recorded Confirmed Type Budesonide/Formoterol Fumarate 2 puff INHALATION BID 05/09/18 09/27/20 History [Symbicort 160-4.5 Mcg Inhaler] Metoprolol Tartrate [Lopressor] 100 mg PO BID 05/09/18 09/27/20 History Multivitamins, Thera [Multivitamin 1 tab PO DAILY 05/09/18 09/27/20 History (formulary)] Omeprazole 20 mg PO QAM 05/09/18 09/27/20 History Oxybutynin Chloride [Ditropan] 5 mg PO HS 05/09/18 09/27/20 History amLODIPine [Norvasc] 5 mg PO QAM 05/09/18 09/27/20 History glipiZIDE [Glucotrol] 20 mg PO HS 05/09/18 09/27/20 History metFORMIN HCL [Glucophage] 1,000 mg PO BID 05/09/18 09/27/20 History Atorvastatin [Lipitor] 20 mg PO HS 03/12/20 09/27/20 History Cinnamon Bark [Cinnamon] 1,000 mg PO BID 03/12/20 09/27/20 History Lisinopril-Hctz 20-12.5 mg 1 tab PO QAM 03/12/20 09/27/20 History [Zestoretic 20-12.5] [place]-3 Fatty Acids/Fish Oil [Fish 1 each PO DAILY 03/12/20 09/27/20 History Oil 1,000 mg Softgel] sitaGLIPtin PHOSPHATE [Januvia] 100 mg PO DAILY 03/12/20 09/27/20 History Pioglitazone [Actos] 15 mg PO QAM 08/29/20 09/27/20 History Aspirin [Adult Low Dose Aspirin EC] 81 mg PO BID #60 tablet. 09/03/20 09/27/20 Rx HYDROcodone/APAP 5-325MG [[place] 1 tab PO Q6HR PRN #30 tab 09/03/20 09/27/20 Rx 5-325] Docusate Sodium [Dok] 100 mg PO DAILY 09/27/20 09/27/20 History Allergies Allergy/AdvReac Type Severity Reaction Status Date / Time No Known Allergies Allergy Verified 09/30/20 14:13 Physical Exam Vitals: Vital Signs Temp Pulse Resp BP Pulse Ox 10/02/20 08:00 98.2 F 87 16 160/76 98 10/02/20 02:08 97.9 F 64 15 160/75 95 10/01/20 19:43 98.2 F 76 18 176/68 98 10/01/20 14:00 97.8 F 80 18 150/67 96 Intake and Output 10/01/20 10/02/20 10/02/20 22:59 06:59 14:59 Intake Total 1200 Balance 1200 Intake: IV 1200 Lactated Ringers 1,000 ml 1200 @ 100 mls/hr IV .Q10H [facility] Rx#:[id number] Other: # Voids 3 GENERAL DESCRIPTION: Elderly female lying in bed, no distress. No tachypnea or accessory muscle of respiration use. HEENT: Shows Pallor , no scleral icterus. Oral mucous membrane is dry. No pharyngeal erythema or thrush NECK: Trachea central, no thyromegaly. LUNGS: Unlabored breathing. Clear to auscultation anteriorly. No wheeze or crackle. HEART: S1, S2, regular rate and rhythm. No loud murmur ABDOMEN: Soft, no tenderness , guarding or rigidity, no organomegaly EXTREMITIES: No edema of feet. Left knee is currently dressed no significant drainage on the dressing SKIN: No rash, no masses palpable. NEUROLOGICAL: The patient is awake, alert, oriented x3, mood and affect normal. Results CBC & Chem 7: 10/01/20 07:36 10/01/20 07:36 Labs: Abnormal Lab Results - Last 24 Hours (Table) 10/01/20 10/01/20 10/01/20 Range/Units 07:36 07:36 07:36 RBC 3.60 L (4.10-5.20) X 10*6/uL Hgb 10.8 L (12.0-15.0) g/dL Hct 32.4 L (37.2-46.3) % Eosinophils # 0 L (0.04-0.35) X 10*3/uL BUN/Creatinine Ratio 21.43 H (12.00-20.00) Ratio Glucose 216 H (70-110) mg/dL POC Glucose (mg/dL) (75-99) mg/dL Hemoglobin A1c 6.1 H (4.0-6.0) % 10/01/20 10/01/20 10/01/20 Range/Units 09:43 11:21 16:36 RBC (4.10-5.20) X 10*6/uL Hgb (12.0-15.0) g/dL Hct (37.2-46.3) % Eosinophils # (0.04-0.35) X 10*3/uL BUN/Creatinine Ratio (12.00-20.00) Ratio Glucose (70-110) mg/dL POC Glucose (mg/dL) 301 H 259 H 310 H (75-99) mg/dL Hemoglobin A1c (4.0-6.0) % 10/01/20 10/02/20 Range/Units 21:24 06:58 RBC (4.10-5.20) X 10*6/uL Hgb (12.0-15.0) g/dL Hct (37.2-46.3) % Eosinophils # (0.04-0.35) X 10*3/uL BUN/Creatinine Ratio (12.00-20.00) Ratio Glucose (70-110) mg/dL POC Glucose (mg/dL) 273 H 185 H (75-99) mg/dL Hemoglobin A1c (4.0-6.0) % Microbiology - Last 24 Hours (Table) 09/30/20 15:30 Gram Stain - Preliminary Knee - Left Wound Culture - Preliminary Gram Neg Bacilli Strep agalactiae - (group b) Assessment and Plan Assessment: patient with left knee distal incision dehiscence in this patient with recent left knee arthroplasty status post debridement of the wound with the operative report and mention no communication with the joint, cultures are now showing a gram-negative with ID sensitivities pending and Streptococcus, patient currently have any fever or elevated white count more likely representing superficial infection however in view of underlying prosthetic joint I recommend a short course of antibiotic therapy depending upon the final culture (1) Cellulitis of knee, left Current Visit: Yes Status: Acute Code(s): L03.116 - CELLULITIS OF LEFT LOWER LIMB SNOMED Code(s): 88123642294330283 (2) Postoperative wound dehiscence Current Visit: Yes Status: Acute Code(s): T81.31XA - DISRUPTION OF EXTERNAL OPERATION (SURGICAL) WOUND, NEC, INIT SNOMED Code(s): 329154334 Plan: 1-we will obtain CRP and sed rate 2-discontinue cefazolin start the patient on cefepime 2 g every 8 hours 3-midline initial course of IV antibiotic depending upon the final culture report We will follow on clinical condition and cultures to further adjust medication if needed Thank you for this consultation we will follow the patient along with you Time with Patient: Greater than 30
[2020-10-03] MEDS: LACTATED RINGERS 1,000 ML IV SCH ×2 (04:25→14:38)
[2020-10-03 06:54] LABS: Glucose,Whole Blood 223 mg/dL (75-99)
[2020-10-03] MEDS: SYMBICORT 160-4.5 MCG INHALER INHALATION SCH (07:54)
[2020-10-03] MEDS: METOPROLOL TARTRATE 50 MG TAB PO SCH (08:05)
[2020-10-03] MEDS: INSULIN ASPART (NovoLOG) 100 UNIT/ML VIAL SQ SCH ×3 (08:05→17:16)
[2020-10-03] MEDS: ENOXAPARIN 30 MG/0.3 ML SYRINGE SQ SCH (08:06)
[2020-10-03] MEDS: LISINOPRIL-HCTZ 20-12.5 MG 1 EACH TAB PO SCH (08:06)
[2020-10-03] MEDS: CEFEPIME 2 GM in SODIUM CHLORIDE 0.9% 100 ML IVPB SCH (08:06)
[2020-10-03] MEDS: DOCUSATE 100 MG CAP PO SCH (08:06)
[2020-10-03] MEDS: PANTOPRAZOLE 40 MG TABLET PO SCH (08:06)
[2020-10-03] MEDS: amLODIPine 5 MG TAB PO SCH (08:06)
[2020-10-03 08:54] LABS: Basophils # (A) 0.06 X 10*3/uL (0.00-0.10); Basophils % (A) 1.2 %; Eosinophils # (A) 0.18 X 10*3/uL (0.04-0.35); Eosinophils % (A) 3.5 %; HCT 32.8 % (37.2-46.3); HGB 10.8 g/dL (12.0-15.0); Lymphocytes # (A) 1.49 X 10*3/uL (0.90-5.00); Lymphocytes % (A) 28.7 %; MCH 30.3 pg (27.0-32.0); MCHC 32.9 g/dL (32.0-37.0); MCV 91.9 fL (80.0-97.0); Mean Platelet Volume 9.6 fL (9.5-12.2); Monocytes # (A) 0.58 X 10*3/uL (0.20-1.00); Monocytes % (A) 11.2 %; Neutrophils # (A) 2.87 X 10*3/uL (1.80-7.70); Neutrophils % (A) 55.2 %; Platelet Count 158 X 10*3/uL (140-440); RBC 3.57 X 10*6/uL (4.10-5.20); RDW 12.8 % (11.5-14.5); WBC 5.19 X 10*3/uL (4.50-10.00)
[2020-10-03 11:47] LABS: Glucose,Whole Blood 248 mg/dL (75-99)
[2020-10-03 12:58] LABS: African American GFR (CKD) 87.8 (60.0-200.0); Anion Gap 10.2 mmol/L (4.00-12.00); BUN/Creat Ratio 13.75 Ratio (12.00-20.00); C Reactive Protein 1.2 mg/dL (0.0-0.8); Calcium 8.7 mg/dL (8.7-10.3); Carbon Dioxide 29.8 mmol/L (21.6-31.8); Non-African American GFR(CKD) 75.8 (60.0-200.0); Potassium 3.5 mmol/L (3.5-5.5)
--- NOTE | 2020-10-03 13:29 | P.PN ---
Subjective Progress Note Date: 10/03/20 Principal diagnosis: Status post irrigation with excisional debridement left knee wound with secondary wound closure Patient was examined today at bedside, she is resting in a hospital chair. She states she is feeling good at this time. She is ambulating with minimal difficulty. She denies any worsening pain of the left knee at this time. She denies any headaches, lightheadedness, shortness of breath, nausea vomiting. Discussed with nursing and case management, patient did receive a midline today. They're working on outpatient IV antibiotics Objective - Vital Signs Vital signs: Vital Signs Temp 98.1 F 10/03/20 07:21 Pulse 77 10/03/20 07:21 Resp 17 10/03/20 07:21 BP 173/73 10/03/20 07:21 Pulse Ox 97 10/03/20 07:21 Intake & Output 10/02/20 10/03/20 10/03/20 18:59 06:59 18:59 Intake Total 1080 100 Balance 1080 100 Intake: Intake, IV Titration 100 Amount Cefepime 2 gm In Sodium 100 Chloride 0.9% 100 ml @ 25 mls/hr IVPB Q8HR [facility] Rx# :[id number] Oral 1080 Other: # Voids 3 # Bowel Movements 1 - Exam Left lower extremity: Incision is clean, dry, and intact. The sutures are in good condition. There is minimal soft tissue swelling and ecchymosis surrounding the medial and lateral aspects of the incision. Obvious soft tissue swelling in the lower ext remity present, 2+ pitting edema Calf is soft, no tenderness with palpation. Plantar flexion, dorsiflexion, EHL, FHL are intact. Sensory exam to light touch throughout the extremity is intact, dorsal pedis pulses 2+. - Labs CBC & Chem 7: 10/03/20 05:58 10/03/20 05:58 Labs: Abnormal Lab Results - Last 24 Hours (Table) 10/02/20 10/02/20 10/03/20 Range/Units 16:30 20:29 05:58 RBC 3.57 L (4.10-5.20) X 10*6/uL Hgb 10.8 L (12.0-15.0) g/dL Hct 32.8 L (37.2-46.3) % Glucose (70-110) mg/dL POC Glucose (mg/dL) 215 H 316 H (75-99) mg/dL C-Reactive Protein (0.0-0.8) mg/dL 10/03/20 10/03/20 10/03/20 Range/Units 05:58 06:53 11:46 RBC (4.10-5.20) X 10*6/uL Hgb (12.0-15.0) g/dL Hct (37.2-46.3) % Glucose 221 H (70-110) mg/dL POC Glucose (mg/dL) 223 H 248 H (75-99) mg/dL C-Reactive Protein 1.2 H (0.0-0.8) mg/dL Microbiology - Last 24 Hours (Table) 09/30/20 15:30 Gram Stain - Final Knee - Left Wound Culture - Final Escherichia coli Strep agalactiae - (group b) Assessment and Plan Assessment: Status post irrigation with excisional debridement left knee wound with secondary wound closure Plan: Pain control, continue with current medication GI and DVT prophylaxis, continue with current medication Activity level instructions were discussed, this including avoiding excess physical therapy mainly with flexion Wound care instructions were discussed with patient Medical and infectious disease recommendations appreciated Discharge planning: Anticipate discharge home today Time with Patient: Less than 30
[2020-10-03 13:54] VITALS: BP 162/71; PULSE 74; RESP 18; TEMP 98.2
--- NOTE | 2020-10-03 15:36 | P.PN ---
Subjective Progress Note Date: 10/03/20 Patient is doing fairly well today. No acute events overnight. Left lower extremity swelling is about the same. Patient told me that at home when she is wearing compression stocking and elevating her legs swelling is significantly better. Objective - Vital Signs Vital signs: Vital Signs Temp 98.2 F 10/03/20 13:34 Pulse 74 10/03/20 13:34 Resp 18 10/03/20 13:34 BP 162/71 10/03/20 13:34 Pulse Ox 97 10/03/20 13:34 Intake & Output 10/02/20 10/03/20 10/03/20 18:59 06:59 18:59 Intake Total 1080 100 Balance 1080 100 Intake: Intake, IV Titration 100 Amount Cefepime 2 gm In Sodium 100 Chloride 0.9% 100 ml @ 25 mls/hr IVPB Q8HR [facility] Rx# :[id number] Oral 1080 Other: # Voids 3 # Bowel Movements 1 - Exam General: The patient is awake and alert, in no distress Eye: there is normal conjunctiva bilaterally. Neck: The neck is supple, there is no JVD. Cardiovascular: Normal S1-S2, no S3-S4, no murmurs. Respiratory: Lungs clear to auscultation bilaterally Gastrointestinal: Abdomen is soft, nontender Musculoskeletal: There is no pedal edema on the right. Left lower extremity wrapped was clean dressing/Misael wrap Neurological:. Speech is normal. Skin: Skin is warm and dry - Labs CBC & Chem 7: 10/03/20 05:58 10/03/20 05:58 Labs: Abnormal Lab Results - Last 24 Hours (Table) 10/02/20 10/02/20 10/03/20 Range/Units 16:30 20:29 05:58 RBC 3.57 L (4.10-5.20) X 10*6/uL Hgb 10.8 L (12.0-15.0) g/dL Hct 32.8 L (37.2-46.3) % ESR 33 H (0-30) mm/Hr Glucose (70-110) mg/dL POC Glucose (mg/dL) 215 H 316 H (75-99) mg/dL C-Reactive Protein (0.0-0.8) mg/dL 08/12/21 08/12/21 08/12/21 Range/Units 05:58 06:53 11:46 RBC (4.10-5.20) X 10*6/uL Hgb (12.0-15.0) g/dL Hct (37.2-46.3) % ESR (0-30) mm/Hr Glucose 221 H (70-110) mg/dL POC Glucose (mg/dL) 223 H 248 H (75-99) mg/dL C-Reactive Protein 1.2 H (0.0-0.8) mg/dL Microbiology - Last 24 Hours (Table) 09/30/20 15:30 Gram Stain - Final Knee - Left Wound Culture - Final Escherichia coli Strep agalactiae - (group b) Assessment and Plan Assessment: 1. Postoperative day #2 status post surgical wound revision and cleaning appointment dehiscence of the left knee, postoperative care per orthopedic surgery 2. Type 2 diabetes, currently on sliding scale insulin. Follow-up outpatient 3. Essential hypertension, blood pressure within acceptable range Today, I reviewed her medication list and lab work results. Continue current regimen. Discharge planning per primary team awaiting final culture and infectious disease recommendations. Discussed with patient to follow-up with her PCP and possibly been taking off of amlodipine as that might be contributing to her lower extremity edema
--- NOTE | 2020-10-03 16:12 | PN ---
PROGRESS NOTE DATE OF SERVICE: 10/03/2020 REASON FOR FOLLOWUP: Left knee cellulitis and wound infection. INTERVAL HISTORY: Patient is afebrile. The patient is breathing comfortably. Denies any chest pain, cough. No nausea. No abdominal pain or pain to the left knee area. PHYSICAL EXAMINATION: Blood pressure 133/73 with a pulse of 77, temperature 98.1. She is 97% on room air. General description is an elderly female lying in bed in no distress. Respiratory system: Unlabored breathing, clear to auscultation anteriorly. Heart: S1, S2. Regular rate and rhythm. Abdomen soft, no tenderness. Left knee are currently dressed. No drainage on the dressing. LABS: Hemoglobin is 10.1, white count 5.1. BUN of 11, creatinine 0.8. Culture finalized with E coli and Streptococcus agalactiae in this patient with left knee wound dehiscence with cellulitis. No evidence of any deep infection. Culture with E coli and Streptococcus. We will switch antibiotic to Rocephin 2 grams daily for 2 weeks and close outpatient followup. Questions and concerns were answered. MMODL / IJN: [id number] /
[2020-10-03 16:44] LABS: Glucose,Whole Blood 277 mg/dL (75-99)
--- NOTE | 2020-10-03 17:10 | P.DS ---
Providers Date of admission: 10/02/20 14:53 Expected date of discharge: 10/03/20 Attending physician: Avi Degroot Consults: 09/30/20 17:48 Consult Physician Routine Consulting Provider: Patricio العلي Consult Reason/Comments: Medical Management Do you want consulting provider notified?: Yes 10/02/20 07:16 Consult Physician Routine Consulting Provider: Matthew Bustos Consult Reason/Comments: wound infection, outpatient antibiotic Do you want consulting provider notified?: Yes Primary care physician: Irvin Carlisle Hospital Course: Date of admission: 09/30/2020 Date of discharge: 10/03/2020 Admission diagnosis: Status post irrigation with excisional debridement of left knee wound, secondary wound closure Discharge diagnosis: Status post irrigation with excisional debridement of left knee wound, secondary wound closure, left knee superficial skin infection Attending physician: Dr. Degroot Surgical procedures: Irrigation with excisional debridement of left knee wound, secondary wound closure Brief history: Patient is a 70-year-old female with a history of a previous left total knee arthroplasty. At her postoperative visit, this determined she had some superficial dehiscence of the distal end of the incision. It was determined she would benefit from surgical intervention. During surgery cultures were taken and were positive for a bacterial infection. Patient was evaluated by the infectious disease doctor. Patient was provided with a midline with plan for outpatient IV antibiotics. Hospital course: Details of patient's surgery can be found in operative report. Patient tolerated the procedure well and was subsequently transported to orthopedic floor. Patient's orthopeidc and medical care was provided daily. Patient had daily laboratory tests performed for evaluation of overall blood counts. Patient had daily physical therapy to include strengthening range of motion as well as education with walker ambulation. Patient was noted to have a relatively uneventful postoperative course. Patient reported satisfactory pain control with oral pain medications by postoperative day 0. Patient showed satisfactory progress with physical therapy. Patient moved steadily through the program and had no difficulty meeting the goals by postoperative day 0. Given patient's otherwise satisfactory course and having met physical therapy goals, plan is to discharge patient home on postoperative day 3. Discharge condition/disposition: Patient will be discharged home in stable condition. Discharge medications: Instructions are given on resumption of patient's normal daily medications per primary care recommendation, in addition patient will be prescribed Rocephin 2g . Discharge instructions: 1. Wound care and infection precautions, keep incision dry and covered while showering, no lotions, creams, moisturizers. No soaking, tubs, pools, hottubs. Do not scrub over the incision. 2. Weight-bear as tolerated with walker / cane until follow-up. 3. Ice and elevate when necessary. Do not exceed 20 minutes per hour with ice pack. 4. Utilize compression sleeve until seen at first follow up appointment. 5. Visiting nursing care. 6. Pain meds and anticoagulants per prescription. 7. Pain medication has potential to cause constipation. Increase oral fluid and fiber intake. Contact primary care provider if you have not had a bowel movement within 48 hours after discharge 8. No anti-inflammatory medication until discussed at first post operative visit, this including Motrin, Aleve, Mobic, Diclofenac 9. Follow up in office at 2 weeks postop with Clifton Montalvo PA-C/Jarad Lawrence PA-C 10. Follow up with your primary care doctor 7-10 days after discharge. 11. Contact [facility] with any questions, . Procedures: Irrigation with incisional debridement left knee wound with secondary wound closure Patient Condition at Discharge: Good Plan - Discharge Summary Discharge Rx Participant: Yes New Discharge Prescriptions: Continue Oxybutynin Chloride [Ditropan] 5 mg PO HS Multivitamins, Thera [Multivitamin (formulary)] 1 tab PO DAILY Omeprazole 20 mg PO QAM Budesonide/Formoterol Fumarate [Symbicort 160-4.5 Mcg Inhaler] 2 puff INHALATION BID metFORMIN HCL [Glucophage] 1,000 mg PO BID glipiZIDE [Glucotrol] 20 mg PO HS Metoprolol Tartrate [Lopressor] 100 mg PO BID amLODIPine [Norvasc] 5 mg PO QAM Atorvastatin [Lipitor] 20 mg PO HS Cinnamon Bark [Cinnamon] 1,000 mg PO BID Lisinopril-Hctz 20-12.5 mg [Zestoretic 20-12.5] 1 tab PO QAM [place]-3 Fatty Acids/Fish Oil [Fish Oil 1,000 mg Softgel] 1 each PO DAILY sitaGLIPtin PHOSPHATE [Januvia] 100 mg PO DAILY Pioglitazone [Actos] 15 mg PO QAM Aspirin [Adult Low Dose Aspirin EC] 81 mg PO BID #60 tablet. Docusate Sodium [Dok] 100 mg PO DAILY Discontinued Cephalexin [Keflex] 500 mg PO Q6HR No Action HYDROcodone/APAP 5-325MG [[place] 5-325] 1 tab PO Q6HR PRN #30 tab PRN Reason: Pain Discharge Medication List Budesonide/Formoterol Fumarate [Symbicort 160-4.5 Mcg Inhaler] 2 puff INHALATION BID 05/09/18 [History] Metoprolol Tartrate [Lopressor] 100 mg PO BID 05/09/18 [History] Multivitamins, Thera [Multivitamin (formulary)] 1 tab PO DAILY 05/09/18 [History] Omeprazole 20 mg PO QAM 05/09/18 [History] Oxybutynin Chloride [Ditropan] 5 mg PO HS 05/09/18 [History] amLODIPine [Norvasc] 5 mg PO QAM 05/09/18 [History] glipiZIDE [Glucotrol] 20 mg PO HS 05/09/18 [History] metFORMIN HCL [Glucophage] 1,000 mg PO BID 05/09/18 [History] Atorvastatin [Lipitor] 20 mg PO HS 03/12/20 [History] Cinnamon Bark [Cinnamon] 1,000 mg PO BID 03/12/20 [History] Lisinopril-Hctz 20-12.5 mg [Zestoretic 20-12.5] 1 tab PO QAM 03/12/20 [History] [place]-3 Fatty Acids/Fish Oil [Fish Oil 1,000 mg Softgel] 1 each PO DAILY 0 03/12/20 [History] sitaGLIPtin PHOSPHATE [Januvia] 100 mg PO DAILY 03/12/20 [History] Pioglitazone [Actos] 15 mg PO QAM 08/29/20 [History] Aspirin [Adult Low Dose Aspirin EC] 81 mg PO BID #60 tablet. 09/03/20 [Rx] HYDROcodone/APAP 5-325MG [[place] 5-325] 1 tab PO Q6HR PRN #30 tab 09/03/20 [Rx] Docusate Sodium [Dok] 100 mg PO DAILY 09/27/20 [History] Follow up Appointment(s)/Referral(s): [facility], [NON-STAFF] - ([facility] will call you to arrange the time for your first visit for 10/04/20.) Nilesh Montalvo, PAC [PHYSICIAN FOREIGN CORRESPONDENT] - 10 Days (Office closed. Please call office Wednesday for your appointment. Thank you.) [facility], [REFERRING] - ([facility] will deliver IV antibiotic supplies tonight. They will call prior to delivery. ) Matthew Bustos MD [STAFF PHYSICIAN] - 10/21/20 1:15 pm Patient Instructions/Handouts: *Surgery [facility] - (Anesthesia) Discharge Instructions Outpatient Surgery Activity/Diet/Wound Care/Special Instructions: Patient is going home on Rocephin 2gm IV daily for [address] Bustos. Orthopedic discharge instructions: 1. Pain medication as needed 2. Keep incision covered and dry while showering 3. Avoid excess flexion of knee at this time 4. Continue with use of the IV antibiotics, follow up with infectious disease as recommended 5. Plan for follow-up at [facility] 10 days for recheck Discharge Disposition: HOME WITH HOME HEALTH SERVICES
[2020-10-03] MEDS ORDERED: lisinopriL 20 MG TAB PO SCH (21:00)
[2020-10-04 11:02] LABS: Erythrocyte Sedimentation Rate 33 mm/Hr (0-30)
== END 2020-10-03 18:10 | disposition home health service (06) | DRG 902 ==
LOC: OR 13:41 → 4SSUR 15:57 → OR 10-02 14:53
PROVIDERS: ADMIT Orthopaedic Surgery; ATTEND Orthopaedic Surgery
PROC: 0JBP0ZZ Excision of Left Lower Leg Subcutaneous Tissue and Fascia, Open Approach (ICD-10-PCS; principal; 2020-09-30 15:20)
PROC: 05HF33Z Insertion of Infusion Device into Left Cephalic Vein, Percutaneous Approach (ICD-10-PCS; 2020-10-03 09:55)
DX: T81.32XA Disruption of internal operation (surgical) wound, not elsewhere classified, initial encounter (principal); L03.116 Cellulitis of left lower limb; Y83.4 Other reconstructive surgery as the cause of abnormal reaction of the patient, or of later complication, without mention of misadventure at the time of the procedure; L93.0 Discoid lupus erythematosus; E11.65 Type 2 diabetes mellitus with hyperglycemia; J45.909 Unspecified asthma, uncomplicated; K21.9 Gastro-esophageal reflux disease without esophagitis; E78.5 Hyperlipidemia, unspecified; I10 Essential (primary) hypertension; T81.31XA Disruption of external operation (surgical) wound, not elsewhere classified, initial encounter; Z79.51 Long term (current) use of inhaled steroids; Z79.82 Long term (current) use of aspirin; Z79.84 Long term (current) use of oral hypoglycemic drugs; Z79.899 Other long term (current) drug therapy; Z87.891 Personal history of nicotine dependence; Z90.710 Acquired absence of both cervix and uterus; Z96.652 Presence of left artificial knee joint; Z86.14 Personal history of Methicillin resistant Staphylococcus aureus infection
CPT/HCPCS: 36410; 76937; 80048; 80051; 83036; 83880; 85025; 85652; 86140; 87070; 87075; 87077; 87186; 87205; 94640

== ENCOUNTER → 2021-04-04 | Outpatient (CLI) | payer MEDICARE, OTHER ==
--- NOTE | 2021-04-07 12:14 | MM ---
Reason for exam: screening (asymptomatic). Last mammogram was performed 2 years and 7 months ago. History: Patient is postmenopausal. Physical Findings: A clinical breast exam by your physician is recommended on an annual basis and results should be correlated with mammographic findings. MG 3D Screening Mammo W/Cad Bilateral CC and MLO view(s) were taken. Prior study comparison: August 28, 2018, mammogram, performed at [facility]. August 24, 2018, mammogram, performed at [facility]. There are scattered fibroglandular densities. There are benign appearing vascaular calcifications bilaterally. There is no discrete abnormality. ASSESSMENT: Benign, BI-RAD 2 RECOMMENDATION: Routine screening mammogram of both breasts in 1 year.
== END | disposition home or self-care (01) ==
LOC: RADMAMWWP 08:32
PROVIDERS: ATTEND Family Medicine
DX: Z12.31 Encounter for screening mammogram for malignant neoplasm of breast (principal); Z78.0 Asymptomatic menopausal state
CPT/HCPCS: 77063; 77067

== ENCOUNTER → 2023-04-12 | Outpatient (CLI) | payer MEDICARE, OTHER ==
--- NOTE | 2023-04-13 22:13 | MM ---
Reason for Exam: Screening (asymptomatic). Last screening mammogram was performed 12 month(s) ago. Patient History: Menarche at age 14. First Full-Term at age 20. Hysterectomy at age 36. Postmenopausal. Patient has history of breast feeding. Niece had breast cancer, age 33. Risk Values: Geri 5 year model risk: 1.3%. NCI Lifetime model risk: 3.5%. Prior Study Comparison: 06/25/2017 Screening Mammogram, [facility]. 08/24/2018 Screening Mammogram, [facility]. 08/28/2018 Screening Mammogram, [facility]. 04/04/2021 Bilateral Screening Mammogram, [facility]. 04/06/2022 Bilateral MG 3D screening mammo w/cad, [facility]. Tissue Density: There are scattered fibroglandular densities. Findings: Analyzed By CAD. There is no suspicious group of microcalcifications or new suspicious mass in either breast. Overall Assessment: Negative, BI-RAD 1 Management: Screening Mammogram of both breasts in 1 year. . Patient should continue monthly self-breast exams. A clinical breast exam by your physician is recommended on an annual basis. This exam should not preclude additional follow-up of suspicious palpable abnormalities. Note on Geri scores and lifetime risk: 1. A Geri score greater than 3% is considered moderate risk. If this is the case, consider specialist referral to assess eligibility for a risk reducing agent. 2. If overall lifetime risk for the development of breast cancer is 20% or higher, the patient may qualify for future screening with alternating mammogram and breast MRI. Electronically signed and approved by: Dhruv Boogie M.D. Radiologist
== END | disposition home or self-care (01) ==
LOC: RADMAMWWP 10:03
PROVIDERS: ATTEND Family Medicine
DX: Z12.31 Encounter for screening mammogram for malignant neoplasm of breast (principal); Z80.3 Family history of malignant neoplasm of breast; Z78.0 Asymptomatic menopausal state
CPT/HCPCS: 77063; 77067